=== PATIENT | male | born 1955 | race Caucasian/White ===

== ENCOUNTER 2025-03-11 11:24 | Outpatient (CLI) | payer MEDICARE, SELFPAY ==
--- NOTE | ~2025-03-11 | XR_ITS ---
Clinical Indication: Hypertension PA and lateral views of the chest: Comparison: None Findings: 6 mm right basilar pulmonary nodule versus nipple shadow present. Left lung clear. Cardiom ediastinal silhouette is within normal limits. Bones and soft tissues are unremarkable. Impression: 6 mm right basilar pulmonary nodule versus nipple shadow. Consider follow-up exam with nipple marker versus chest CT for further evaluation. Reviewed, dictated and finalized at location . Impression: 6 mm right basilar pulmonary nodule versus nipple shadow. Consider follow-up ex am with nipple marker versus chest CT for further evaluation.
--- OUTSIDE RECORDS SUMMARY | 2025-03-11 12:00 | XMS_ITS | Data Portability ---
Author Organization [facility] Barbi Key Address [address] [place] [address] Care Team Providers Care Recruitment Advertising Manager Name Role Phone RAVEN BAUER Primary Care Provider Assessment Encounter Date Assessment Date Assessment LastModified by Organization Details LastModified Time 02/08/2024 02/08/2024 Etiology of his fatigue is not clear but we will obtain blood work for right now we will keep him on the medicines that he is on his blood pressure is up a little bit but he says that is because he just does not feel good. 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 Will continue current therapy I like to see him back in about 2 months. [email or web address] Not available 02/24/2024 21:43:22 04/13/2024 04/13/2024 diagnosis and assessment and plan have been discussed all questions referable to that have been answered we will continue current therapy he will follow up with me in 3-4 months with blood work at that time [email or web address] Not available 04/13/2024 11:14:00 07/20/2024 07/20/2024 given the CKD 3 systolic of 142 we will add amlodipine 5 mg daily. Blood work has been ordered. His flu vaccine was recommended he has declined regular walking disease processes have been discussed he will follow up with me in 4 months [email or web address] Not available 07/20/2024 22:00:02 Plan of Treatment Reminders Order Date Submit Date Provider Last Modified By Organization Details Last Modified Time Details Appointments None recorded. Lab lipid panel, serum 2023 [facility], [address], [place], [address], 4 08:35:49 CMP, serum or plasma 2023 [facility], [address], [place], [address], 4 08:35:52 CBC w/ auto diff 2023 [facility], [address], [place], [address], 4 08:35:54 unlisted lab - T4, free 2023 [facility], [address], [place], [address], 4 08:35:50 T3, free, serum or plasma 2023 [facility], [address], [place], [address], 4 08:35:55 TSH, ultra-sensi tive, serum 2023 024 [facility], [address], [place], [address], 4 08:35:53 TSH, ultra-sensi tive, serum 2023 024 [facility], [address], [place], [address], 4 06:20:45 T3, free, serum or plasma [facility]23 [facility] [address], [place], [address], 4 06:20:46 T4, free, serum 2023 024 [facility] [address], [place], [address], 4 06:20:47 vitamin B12 + folate, serum or blood 2023 024 [facility] [address], [place], [address], 4 06:20:44 iron + TIBC + ferritin, serum 2023 024 [facility], [address], [place], [address], 4 06:20:47 CBC w/ auto diff 2023 024 [facility], [address], [place], [address], 4 06:20:45 Referral None recorded. Procedures None recorded. Surgeries None recorded. Imaging None recorded. Medication Orders amlodipine 5 mg tablet 2023 024 [email or web address] [id number], [address], [place], [place], [id number], 15:56:13 Patient TargetsNo targets recorded. Patient Instructions Encounter Date Encounter Id Patient Instructions Last Modified By Organization Details Last Modified Time 07/20/2024 [id number] A healthy lifestyle: care instructions Not available 07/20/2024 15:56:13 Reason for Referral None Reported. Results Created Date Observation Date Name Description Value Unit Range Abnormal Flag Note LastModifiedBy Organization Detail LastModifiedTime 02/08/20 24 02/09/2024 VITAM IN B12 AND FOLAT E vitamin B12 364 pg/mL 232-12 45 Not Available [facility] ([facility]) [address], [place], [address], 02/09/2024 06:20:44 02/08/20 24 02/09/2024 VITAM IN B12 AND FOLAT E folate (folic acid), serum 15.8 NG/mL >3.0 A serum folat e andre ntrat ion of less than 3.1 ng/mL is consi dered to repre sent clini bouchra defic iency . Not Available [facility] ([facility]) [address], [place], [address], 02/09/2024 06:20:44 02/08/20 24 02/09/2024 TSH TSH 8.940 uIU/m L 0.450- 4.500 above high normal Not Available [facility] ([facility]) [address], [place], [address], 02/09/2024 06:20:45 02/08/20 24 02/09/2024 CBC WITH DIFFE RENTI AL/PL ATELE T WBC 2.9 x10e3 /uL 3.4-10 .8 below low normal Not Available [facility] ([facility]) [address], [place], [address], 02/09/2024 06:20:45 02/08/20 24 02/09/2024 CBC WITH DIFFE RENTI AL/PL ATELE T RBC 2.40 x10e6 /uL 4.14-5 .80 alert low Ovalo cytes prese nt. Not Available [facility] ([facility]) [address] [place], [address], 02/09/2024 06:20:45 02/08/20 24 02/09/2024 CBC WITH DIFFE RENTI AL/PL ATELE T hemoglobin 8.5 g/dL 13.0-1 7.7 below low normal Sasha ified by martita capps jone sis Not Available [facility] ([facility]) [address], [place], [address], 02/09/2024 06:20:45 02/08/20 24 02/09/2024 CBC WITH DIFFE RENTI AL/PL ATELE T hematocrit 26.4 % 37.5-5 1.0 below low normal Not Available [facility] ([facility]) [address], [place], [address], 02/09/2024 06:20:45 02/08/20 24 02/09/2024 CBC WITH DIFFE RENTI AL/PL ATELE T MCV 110 fL 79-97 above high normal Not Available [facility] ([facility]) [address], [place], [address], 02/09/2024 06:20:45 02/08/20 24 02/09/2024 CBC WITH DIFFE RENTI AL/PL ATELE T MCH 35.4 pg 26.6-3 3.0 above high normal Not Available [facility] ([facility]) [address], [place], [address], 02/09/2024 06:20:45 02/08/20 24 02/09/2024 CBC WITH DIFFE RENTI AL/PL ATELE T MCHC 32.2 g/dL 31.5-3 5.7 Not Available [facility] ([facility]) [address], [place], [address], 02/09/2024 06:20:45 02/08/20 24 02/09/2024 CBC WITH DIFFE RENTI AL/PL ATELE T RDW 19.0 % 11.6-1 5.4 above high normal Not Available [facility] ([facility]) [address], [place], [address], 02/09/2024 06:20:45 02/08/20 24 02/09/2024 CBC WITH DIFFE RENTI AL/PL ATELE T platelets 70 x10e3 /uL 150-45 0 alert low Plate let count verif ied by adriana funk of perip heral blood smear . Not Available [facility] ([facility]) [address], [place], [address], 02/09/2024 06:20:45 02/08/20 24 02/09/2024 CBC WITH DIFFE RENTI AL/PL ATELE T neutrophils 78 % notest ab. Not Available [facility] ([facility]) [address], [place], [address], 02/09/2024 06:20:45 02/08/20 24 02/09/2024 CBC WITH DIFFE RENTI AL/PL ATELE T lymphs 15 % notest ab. Not Available [facility] ([facility]) [address], [place], [address], 02/09/2024 06:20:45 02/08/20 24 02/09/2024 CBC WITH DIFFE RENTI AL/PL ATELE T monocytes 2 % notest ab. Not Available [facility] ([facility]) [address] [place], [address], 02/09/2024 06:20:45 02/08/20 24 02/09/2024 CBC WITH DIFFE RENTI AL/PL ATELE T eos 4 % notest ab. Not Available [facility] ([facility]) [address] [place], [address], 02/09/2024 06:20:45 02/08/20 24 02/09/2024 CBC WITH DIFFE RENTI AL/PL ATELE T basos 1 % notest ab. Not Available [facility] ([facility]) [address], [place], [address], 02/09/2024 06:20:45 02/08/20 24 02/09/2024 CBC WITH DIFFE RENTI AL/PL ATELE T neutrophils (absolute) 2.3 x10e3 /uL 1.4-7. 0 Not Available [facility] ([facility]) [address], [place], [address], 02/09/2024 06:20:45 02/08/20 24 02/09/2024 CBC WITH DIFFE RENTI AL/PL ATELE T lymphs (absolute) 0.5 x10e3 /uL 0.7-3. 1 below low normal Not Available [facility] ([facility]) [address], [place], [address], 02/09/2024 06:20:45 02/08/20 24 02/09/2024 CBC WITH DIFFE RENTI AL/PL ATELE T monocytes(ab solute) 0.1 x10e3 /uL 0.1-0. 9 Not Available [facility] ([facility]) [address], [place], [address], 02/09/2024 06:20:45 02/08/20 24 02/09/2024 CBC WITH DIFFE RENTI AL/PL ATELE T eos (absolute) 0.1 x10e3 /uL 0.0-0. 4 Not Available [facility] ([facility]) [address], [place], [address], 02/09/2024 06:20:45 02/08/20 24 02/09/2024 CBC WITH DIFFE RENTI AL/PL ATELE T baso (absolute) 0.0 x10e3 /uL 0.0-0. 2 Not Available [facility] ([facility]) [address], [place], [address], 02/09/2024 06:20:45 02/08/20 24 02/09/2024 CBC WITH DIFFE RENTI AL/PL ATELE T immature granulocytes 0 % notest ab. Not Available [facility] ([facility]) [address], [place], [address], 02/09/2024 06:20:45 02/08/20 24 02/09/2024 CBC WITH DIFFE RENTI AL/PL ATELE T immature grans (abs) 0.0 x10e3 /uL 0.0-0. 1 Not Available [facility] ([facility]) [address] [place], [address], 02/09/2024 06:20:45 02/08/20 24 02/09/2024 CBC WITH DIFFE RENTI AL/PL ATELE T hematology comments: Note: Verif ied by micro julio [email or web address] natsal n. Not Available [facility] ([facility]) [address] [place], [address], 02/09/2024 06:20:45 02/08/20 24 02/09/2024 TRIIO DOTHY ANGELI E (T3), FREE triiodothyro nine (T3), free 1.8 pg/mL 2.0-4. 4 below low normal Not Available [facility] ([facility]) [address] [place], [address], 02/09/2024 06:20:46 02/08/20 24 02/09/2024 T4,FR EE(DI RECT) T4,free(dire ct) 1.02 NG/dL 0.82-1 .77 Not Available [facility] ([facility]) [address] [place], [address], 02/09/2024 06:20:47 02/08/20 24 02/09/2024 FE+TI BC+FE R iron bind.cap.(TI BC) 306 ug/dL 250-45 0 Not Available [facility] ([facility]) [address] [place], [address], 02/09/2024 06:20:47 02/08/20 24 02/09/2024 FE+TI BC+FE R UIBC 273 ug/dL 111-34 3 Not Available [facility] ([facility]) [address] [place], [address], 02/09/2024 06:20:47 02/08/20 24 02/09/2024 FE+TI BC+FE R iron 33 ug/dL 38-169 below low normal Not Available [facility] ([facility]) [address] [place], [address], 02/09/2024 06:20:47 02/08/20 24 02/09/2024 FE+TI BC+FE R iron saturation 11 % 15-55 below low normal Not Available [facility] ([facility]) [address] [place], [address], 02/09/2024 06:20:47 02/08/20 24 02/09/2024 FE+TI BC+FE R ferritin 849 NG/mL 30-400 above high normal Not Available [facility] ([facility]) [address] [place], [address], 02/09/2024 06:20:47 02/22/20 24 02/23/2024 IMMAT URE CELLS myelocytes 4 % 0-0 above high normal Not Available [facility] ([facility]) [address] [place], [address], 02/23/2024 06:37:37 02/22/20 24 02/23/2024 CBC WITH DIFFE RENTI AL/PL ATELE T WBC 5.6 x10e3 /uL 3.4-10 .8 Not Available [facility] ([facility]) [address] [place], [address], 02/23/2024 06:37:37 02/22/20 24 02/23/2024 CBC WITH DIFFE RENTI AL/PL ATELE T RBC 2.63 x10e6 /uL 4.14-5 .80 alert low Polyc hroma juan ramon prese nt Ovalo cytes prese nt. Not Available [facility] ([facility]) [address] [place], [address], 02/23/2024 06:37:37 02/22/20 24 02/23/2024 CBC WITH DIFFE RENTI AL/PL ATELE T hemoglobin 8.9 g/dL 13.0-1 7.7 below low normal Not Available [facility] ([facility]) [address], [place], [address], 02/23/2024 06:37:37 02/22/20 24 02/23/2024 CBC WITH DIFFE RENTI AL/PL ATELE T hematocrit 29.4 % 37.5-5 1.0 below low normal Not Available [facility] ([facility]) [address] [place], [address], 02/23/2024 06:37:37 02/22/20 24 02/23/2024 CBC WITH DIFFE RENTI AL/PL ATELE T MCV 112 fL 79-97 above high normal Not Available [facility] ([facility]) [address] [place], [address], 02/23/2024 06:37:37 02/22/20 24 02/23/2024 CBC WITH DIFFE RENTI AL/PL ATELE T MCH 33.8 pg 26.6-3 3.0 above high normal Not Available [facility] ([facility]) [address] [place], [address], 02/23/2024 06:37:37 02/22/20 24 02/23/2024 CBC WITH DIFFE RENTI AL/PL ATELE T MCHC 30.3 g/dL 31.5-3 5.7 below low normal Not Available [facility] ([facility]) [address] [place], [address], 02/23/2024 06:37:37 02/22/20 24 02/23/2024 CBC WITH DIFFE RENTI AL/PL ATELE T RDW 17.9 % 11.6-1 5.4 above high normal Not Available [facility] ([facility]) [address] [place], [address], 02/23/2024 06:37:37 02/22/20 24 02/23/2024 CBC WITH DIFFE RENTI AL/PL ATELE T platelets 627 x10e3 /uL 150-45 0 above high normal Not Available [facility] ([facility]) [address], [place], [address], 02/23/2024 06:37:37 02/22/20 24 02/23/2024 CBC WITH DIFFE RENTI AL/PL ATELE T neutrophils 34 % notest ab. Not Available [facility] ([facility]) [address], [place], [address], 02/23/2024 06:37:37 02/22/20 24 02/23/2024 CBC WITH DIFFE RENTI AL/PL ATELE T lymphs 32 % notest ab. Not Available [facility] ([facility]) [address], [place], [address], 02/23/2024 06:37:37 02/22/20 24 02/23/2024 CBC WITH DIFFE RENTI AL/PL ATELE T monocytes 22 % notest ab. Not Available [facility] ([facility]) [address], [place], [address], 02/23/2024 06:37:37 02/22/20 24 02/23/2024 CBC WITH DIFFE RENTI AL/PL ATELE T eos 5 % notest ab. Not Available [facility] ([facility]) [address], [place], [address], 02/23/2024 06:37:37 02/22/20 24 02/23/2024 CBC WITH DIFFE RENTI AL/PL ATELE T basos 3 % notest ab. Not Available [facility] ([facility]) [address], [place], [address], 02/23/2024 06:37:37 02/22/20 24 02/23/2024 CBC WITH DIFFE RENTI AL/PL ATELE T immature cells Note Not Available [facility] ([facility]) [address] [place], [address], 02/23/2024 06:37:37 02/22/20 24 02/23/2024 CBC WITH DIFFE RENTI AL/PL ATELE T neutrophils (absolute) 1.9 x10e3 /uL 1.4-7. 0 Not Available [facility] ([facility]) [address] [place], [address], 02/23/2024 06:37:37 02/22/20 24 02/23/2024 CBC WITH DIFFE RENTI AL/PL ATELE T lymphs (absolute) 1.8 x10e3 /uL 0.7-3. 1 Not Available [facility] ([facility]) [address] [place], [address], 02/23/2024 06:37:37 02/22/20 24 02/23/2024 CBC WITH DIFFE RENTI AL/PL ATELE T monocytes(ab solute) 1.2 x10e3 /uL 0.1-0. 9 above high normal Not Available [facility] ([facility]) [address] [place], [address], 02/23/2024 06:37:37 02/22/20 24 02/23/2024 CBC WITH DIFFE RENTI AL/PL ATELE T eos (absolute) 0.3 x10e3 /uL 0.0-0. 4 Not Available [facility] ([facility]) [address] [place], [address], 02/23/2024 06:37:37 02/22/20 24 02/23/2024 CBC WITH DIFFE RENTI AL/PL ATELE T baso (absolute) 0.2 x10e3 /uL 0.0-0. 2 Not Available [facility] ([facility]) [address] [place], [address], 02/23/2024 06:37:37 02/22/2002/23/2024 CBC WITH RENUKA CEE/PL ATELE T hematology comments: Note: Bre bermeo renuka cee was perfo rmed. Not Available [facility] ([facility]) [address], [place], [address], 02/23/2024 06:37:37 07/20/2007/21/2024 LIPID PANEL cholesterol, total 129 mg/dL 100-19 9 Not Available [facility] ([facility]) [address] [place], [address], 07/21/2024 08:35:49 07/20/2007/21/2024 LIPID PANEL triglyceride s 134 mg/dL 0-149 Not Available [facility] ([facility]) [address] [place], [address], 07/21/2024 08:35:49 07/20/2007/21/2024 LIPID PANEL HDL cholesterol 65 mg/dL >39 Not Available [facility] ([facility]) [address] [place], [address], 07/21/2024 08:35:49 07/20/20 24 07/21/2024 LIPID PANEL VLDL cholesterol bouchra 23 mg/dL 5-40 Not Available [facility] ([facility]) [address] [place], [address], 07/21/2024 08:35:49 07/20/20 24 07/21/2024 LIPID PANEL LDL chol calc ([facility]) 41 mg/dL 0-99 Not Available [facility] ([facility]) [address] [place], [address], 07/21/2024 08:35:49 07/20/20 24 07/21/2024 T4, FREE T4,free(dire ct) 1.23 NG/dL 0.82-1 .77 Not Available [facility] ([facility]) [address] [place], [address], 07/21/2024 08:35:50 07/20/20 24 07/21/2024 COMP. METAB OLIC PANEL (14) glucose 83 mg/dL 70-99 Not Available [facility] ([facility]) [address] [place], [address], 07/21/2024 08:35:51 07/20/20 24 07/21/2024 COMP. METAB OLIC PANEL (14) BUN 26 mg/dL 8-27 Not Available [facility] ([facility]) [address] [place], [address], 07/21/2024 08:35:51 07/20/20 24 07/21/2024 COMP. METAB OLIC PANEL (14) creatinine 1.99 mg/dL 0.76-1 .27 above high normal Not Available [facility] ([facility]) [address] [place], [address], 07/21/2024 08:35:51 07/20/20 24 07/21/2024 COMP. METAB OLIC PANEL (14) eGFR 36 mL/mi n/1.7 3 >59 below low normal Not Available [facility] ([facility]) [address] [place], [address], 07/21/2024 08:35:51 07/20/20 24 07/21/2024 COMP. METAB OLIC PANEL (14) BUN/creatini ne ratio 13 10-24 Not Available [facility] ([facility]) [address] [place], [address], 07/21/2024 08:35:51 07/20/20 24 07/21/2024 COMP. METAB OLIC PANEL (14) sodium 137 mmol/ L 134-14 4 Not Available [facility] ([facility]) [address] [place], [address], 07/21/2024 08:35:51 07/20/20 24 07/21/2024 COMP. METAB OLIC PANEL (14) potassium 5.3 mmol/ L 3.5-5. 2 above high normal Not Available [facility] ([facility]) [address], [place], [address], 07/21/2024 08:35:51 07/20/20 24 07/21/2024 COMP. METAB OLIC PANEL (14) chloride 99 mmol/ L 96-106 Not Available [facility] ([facility]) [address], [place], [address], 07/21/2024 08:35:51 07/20/2007/21/2024 COMP. METAB OLIC PANEL (14) carbon dioxide, total 22 mmol/ L 20-29 Not Available [facility] ([facility]) [address], [place], [address], 07/21/2024 08:35:51 07/20/20 24 07/21/2024 COMP. METAB OLIC PANEL (14) calcium 9.3 mg/dL 8.6-10 .2 Not Available [facility] ([facility]) [address], [place], [address], 07/21/2024 08:35:51 07/20/20 24 07/21/2024 COMP. METAB OLIC PANEL (14) protein, total 6.7 g/dL 6.0-8. 5 Not Available [facility] ([facility]) [address] [place], [address], 07/21/2024 08:35:51 07/20/20 24 07/21/2024 COMP. METAB OLIC PANEL (14) albumin 4.3 g/dL 3.9-4. 9 Not Available [facility] ([facility]) [address] [place], [address], 07/21/2024 08:35:51 07/20/2007/21/2024 COMP. METAB OLIC PANEL (14) globulin, total 2.4 g/dL 1.5-4. 5 Not Available [facility] ([facility]) [address], [place], [address], 07/21/2024 08:35:51 07/20/20 24 07/21/2024 COMP. METAB OLIC PANEL (14) bilirubin, total 1.0 mg/dL 0.0-1. 2 Not Available [facility] ([facility]) [address], [place], [address], 07/21/2024 08:35:51 07/20/20 24 07/21/2024 COMP. METAB OLIC PANEL (14) alkaline phosphatase 101 IU/L 44-121 Not Available [facility] ([facility]) [address], [place], [address], 07/21/2024 08:35:51 07/20/20 24 07/21/2024 COMP. METAB OLIC PANEL (14) AST (SGOT) 41 IU/L 0-40 above high normal Not Available [facility] ([facility]) [address], [place], [address], 07/21/2024 08:35:51 07/20/20 24 07/21/2024 COMP. METAB OLIC PANEL (14) ALT (SGPT) 24 IU/L 0-44 Not Available [facility] ([facility]) [address], [place], [address], 07/21/2024 08:35:51 07/20/20 24 07/21/2024 TSH TSH 5.130 uIU/m L 0.450- 4.500 above high normal Not Available [facility] ([facility]) [address], [place], [address], 07/21/2024 08:35:53 07/20/20 24 07/21/2024 CBC WITH DIFFE RENTI AL/PL ATELE T WBC 6.8 x10e3 /uL 3.4-10 .8 Not Available [facility] ([facility]) [address], [place], [address], 07/21/2024 08:35:54 07/20/20 24 07/21/2024 CBC WITH DIFFE RENTI AL/PL ATELE T RBC 3.60 x10e6 /uL 4.14-5 .80 below low normal Not Available [facility] ([facility]) [address], [place], [address], 07/21/2024 08:35:54 07/20/2007/21/2024 CBC WITH DIFFE RENTI AL/PL ATELE T hemoglobin 12.6 g/dL 13.0-1 7.7 below low normal Not Available [facility] ([facility]) [address] [place], [address], 07/21/2024 08:35:54 07/20/2007/21/2024 CBC WITH DIFFE RENTI AL/PL ATELE T hematocrit 40.1 % 37.5-5 1.0 Not Available [facility] ([facility]) [address] [place], [address], 07/21/2024 08:35:54 07/20/2007/21/2024 CBC WITH DIFFE RENTI AL/PL ATELE T MCV 111 fL 79-97 above high normal Not Available [facility] ([facility]) [address] [place], [address], 07/21/2024 08:35:54 07/20/2007/21/2024 CBC WITH DIFFE RENTI AL/PL ATELE T MCH 35.0 pg 26.6-3 3.0 above high normal Not Available [facility] ([facility]) [address] [place], [address], 07/21/2024 08:35:54 07/20/2007/21/2024 CBC WITH DIFFE RENTI AL/PL ATELE T MCHC 31.4 g/dL 31.5-3 5.7 below low normal Not Available [facility] ([facility]) [address], [place], [address], 07/21/2024 08:35:54 07/20/20 24 07/21/2024 CBC WITH DIFFE RENTI AL/PL ATELE T RDW 14.1 % 11.6-1 5.4 Not Available [facility] ([facility]) [address], [place], [address], 07/21/2024 08:35:54 07/20/2007/21/2024 CBC WITH DIFFE RENTI AL/PL ATELE T platelets 158 x10e3 /uL 150-45 0 Not Available [facility] ([facility]) [address], [place], [address], 07/21/2024 08:35:54 07/20/2007/21/2024 CBC WITH DIFFE RENTI AL/PL ATELE T neutrophils 69 % notest ab. Not Available [facility] ([facility]) [address], [place], [address], 07/21/2024 08:35:54 07/20/20 24 07/21/2024 CBC WITH DIFFE RENTI AL/PL ATELE T lymphs 18 % notest ab. Not Available [facility] ([facility]) [address], [place], [address], 07/21/2024 08:35:54 07/20/20 24 07/21/2024 CBC WITH DIFFE RENTI AL/PL ATELE T monocytes 10 % notest ab. Not Available [facility] ([facility]) [address], [place], [address], 07/21/2024 08:35:54 07/20/20 24 07/21/2024 CBC WITH DIFFE RENTI AL/PL ATELE T eos 2 % notest ab. Not Available [facility] ([facility]) [address], [place], [address], 07/21/2024 08:35:54 07/20/2007/21/2024 CBC WITH DIFFE RENTI AL/PL ATELE T basos 1 % notest ab. Not Available [facility] ([facility]) [address], [place], [address], 07/21/2024 08:35:54 07/20/2007/21/2024 CBC WITH DIFFE RENTI AL/PL ATELE T neutrophils (absolute) 4.7 x10e3 /uL 1.4-7. 0 Not Available [facility] ([facility]) [address], [place], [address], 07/21/2024 08:35:54 07/20/20 24 07/21/2024 CBC WITH DIFFE RENTI AL/PL ATELE T lymphs (absolute) 1.2 x10e3 /uL 0.7-3. 1 Not Available [facility] ([facility]) [address], [place], [address], 07/21/2024 08:35:54 07/20/20 24 07/21/2024 CBC WITH DIFFE RENTI AL/PL ATELE T monocytes(ab solute) 0.7 x10e3 /uL 0.1-0. 9 Not Available [facility] ([facility]) [address], [place], [address], 07/21/2024 08:35:54 07/20/20 24 07/21/2024 CBC WITH DIFFE RENTI AL/PL ATELE T eos (absolute) 0.1 x10e3 /uL 0.0-0. 4 Not Available [facility] ([facility]) [address], [place], [address], 07/21/2024 08:35:54 07/20/20 24 07/21/2024 CBC WITH DIFFE RENTI AL/PL ATELE T baso (absolute) 0.1 x10e3 /uL 0.0-0. 2 Not Available [facility] ([facility]) [address], [place], [address], 07/21/2024 08:35:54 07/20/20 24 07/21/2024 CBC WITH DIFFE RENTI AL/PL ATELE T immature granulocytes 0 % notest ab. Not Available [facility] ([facility]) [address], [place], [address], 07/21/2024 08:35:54 07/20/20 24 07/21/2024 CBC WITH DIFFE RENTI AL/PL ATELE T immature grans (abs) 0.0 x10e3 /uL 0.0-0. 1 Not Available [facility] ([facility]) [address], [place], [address], 07/21/2024 08:35:54 07/20/20 24 07/21/2024 TRIIO DOTHY ANGELI E (T3), FREE triiodothyro nine (T3), free 1.8 pg/mL 2.0-4. 4 below low normal Not Available [facility] ([facility]) [address], [place], [address], 07/21/2024 08:35:55 02/13/20 24 02/13/2024 US, abdom en No observ ation record ed. [email or web address] [facility] [address] [place], [address], 02/23/2024 15:32:45 10/09/20 24 12/11/2021 colon oscop y scree noreen (PROC ) No observ ation record ed. BARCODE Not Available 2023 18:02:43 Result Notes None recorded. Problems Name Problem SNOMED Code Status Onset Date Resolution Date Notes Provider Name and Address Organization Details Recorded Time Fatigue 24242362 Active 2023 Iris Singer MA null, [place] - [facility] 4 09:42:06 Pancytopenia 251091094 Active 2023 Raven Bauer MD Attn: Fernanda ace,[address] [place], [address], [place] [facility] 4 21:43:06 Seronegative rheumatoid arthritis 639230533 Active 2023 Raven Bauer MD Attn: Fernanda db,[address] [place], [address], [place] [facility] 4 21:43:08 Chronic kidney disease stage 3 838493243 Active 2023 Raven Bauer MD Attn: Fernanda db,[address] [place], [address], [place] [facility] 4 21:43:13 Gout 33447707 Active 2023 Raven Bauer MD Attn: Fernanda ace,[address] [place], [address], [place] [facility] 4 21:43:14 Hypothyroidism 78970772 Active 2023 Raven Bauer MD Attn: Fernanda db,[address] [place], [address], [place] [facility] 4 21:43:15 Hyperlipidemia 70889788 Active 2023 Raven Bauer MD Attn: Fernanda ace,[address] [place], [address], [place] [facility] 4 21:43:19 Rheumatoid arthritis 92289964 Active 2023 Raven Bauer MD Attn: Fernanda ace,[address] [place], [address], [place] [facility] 4 21:22:47 Atrial fibrillation 89674934 Active 2023 Raven Bauer MD Attn: Fernanda ace,[address] [place], [address], [place] [facility] 4 21:22:47 Essential hypertension 20269998 Active 2023 Raven Bauer MD Attn: Fernanda ace,[address] [facility], [place], [address], [facility] - [facility] 4 21:22:52 Problem Notes None recorded. Medical Equipment None Reported. Allergies Allergen ID Allergen Name Allergen Category Reaction Reaction Severity Criticality Documentation Date Start Date Code Code System Note Provider Name and Address Organization Details Recorded Time 17050517 cephaelin e Not available Not available Not available Not available 02/08/2024 63293 UNK Preston Zamarripa MA null, [facility] 4 10:37:41 390269 cephalexi n medicatio n Not available Not available Not available 02/08/2024 2231 RxNorm Preston Zamarripa MA null, [facility] 4 10:37:38 Medications Name Sig Start Date Stop Date Status Note LastModified by Organization Details LastModified Time atorvastati n 40 mg tablet TAKE 1 TABLET BY MOUTH EVERY NIGHT active Not Available Not Available No t Available amiodarone 200 mg tablet TAKE 1 TABLET BY MOUTH EVERY DAY active Not Available Not Available No t Available lisinopril 20 mg tablet active Not Available Not Available Not Available prednisone 5 mg tablet 02/07 completed Not Available Not Available Not Available clindamycin HCl 150 mg capsule TAKE 1 CAPSULE BY MOUTH FOUR TIMES DAILY UNTIL ALL TAKEN 02/07 completed Not Available Not Available Not Available acetaminoph en 300 mg-codeine 30 mg tablet TAKE 1 TABLET BY MOUTH EVERY 4 HOURS NEEDED FOR PAIN 02/07 completed Not Available Not Available Not Available amlodipine 5 mg tablet TAKE 1 TABLET BY MOUTH EVERY DAY active Not Available Not Available No t Available tramadol 50 mg tablet TAKE 1 TABLET BY MOUTH THREE TIMES DAILY NEEDED FOR PAIN active Not Available Not Available No t Available levothyroxi ne 25 mcg tablet TAKE 1 TABLET BY MOUTH EVERY DAY active Not Available Not Available No t Available methotrexat e sodium 2.5 mg tablet TAKE 5 TABLETS IN THE MORNING AND 5 TABLETS IN THE EVENING BY MOUTH ONCE WEEKLY 04/13 completed Not Available Not Available Not Available lisinopril 10 mg tablet TAKE 1 TABLET BY MOUTH EVERY DAY 07/20 completed Not Available Not Available Not Available metoprolol tartrate 50 mg tablet TAKE 1 TABLET BY MOUTH TWICE DAILY active Not Available Not Available No t Available folic acid 1 mg tablet active Not Available Not Available Not Available lisinopril 5 mg tablet TAKE 1 TABLET BY MOUTH DAILY 07/20 completed Not Available Not Available Not Available furosemide 20 mg tablet TAKE 1 TABLET BY MOUTH ON EVEN DAYS, ALTERNATI NG WITH 2 TABLETS ON ODD DAYS active Not Available Not Available No t Available methylpredn isolone 4 mg tablets in a dose pack TAKE DIRECTED 02/07 completed Not Available Not Available Not Available calcitriol 0.25 mcg capsule active Not Available Not Available Not Available amoxicillin 875 mg-potassiu m clavulanate 125 mg tablet TAKE 1 TABLET BY MOUTH ONCE DAILY X 3 DAYS 02/07 completed Not Available Not Available Not Available ezetimibe 10 mg tablet TAKE 1 TABLET BY MOUTH EVERY DAY active Not Available Not Available No t Available oseltamivir 30 mg capsule 02/07 completed Not Available Not Available Not Available Eliquis 5 mg tablet TAKE 1 TABLET BY MOUTH TWICE DAILY active Not Available Not Available No t Available Vitals Date Recorded Body weight Body mass index (BMI) Body height Oxygen saturation Oxygen saturation in Arterial blood by Pulse oximetry Heart rate Systolic blood pressure Diastolic blood pressure Provider Name and Address Organization Details Last Updated DateTime 4 09362.7 8 g 24.3 kg/m2 172.72 cm 98 % 98 % 47 /min 152 mm[Hg] 84 mm[Hg] Preston Zamarripa MA [facility] 4 10:33:27 Date Recorded Body height Body mass index (BMI) Body weight Heart rate Oxygen saturation Oxygen saturation in Arterial blood by Pulse oximetry Systolic blood pressure Diastolic blood pressure Provider Name and Address Organization Details Last Updated DateTime 4 172.72 cm 25.1 kg/m2 56684.7 4 g 59 /min 99 % 99 % 150 mm[Hg] 82 mm[Hg] Sherly Mccain MA [place] - [facility] 4 10:52:34 Date Recorded Body height Body mass index (BMI) Body weight Heart rate Oxygen saturation Oxygen saturation in Arterial blood by Pulse oximetry Systolic blood pressure Diastolic blood pressure Provider Name and Address Organization Details Last Updated DateTime 4 172.72 cm 25.4 kg/m2 62514.9 3 g 47 /min 99 % 99 % 134 mm[Hg] 72 mm[Hg] Preston Zamarripa MA [facility] 4 10:21:32 Date Recorded Body height Body mass index (BMI) Body weight Heart rate Oxygen saturation Oxygen saturation in Arterial blood by Pulse oximetry Systolic blood pressure Diastolic blood pressure Provider Name and Address Organization Details Last Updated DateTime 172.72 cm 24.3 kg/m2 37331.7 8 g 52 /min 98 % 98 % 142 mm[Hg] 70 mm[Hg] Tor Flores MA [facility] 4 10:24:54 Social History Question Answer Notes LastModified by Organizat ion Details LastModified Time Tobacco Smoking Status Never Smoker Preston Zamarripa MA [facility], [facility] 02/08/2024 10:39:10 Do You Have An Advance Directive? No Information not available 02/08/2024 Are You Blind Or Do You Have Difficulty Seeing? No Information not available 02/08/2024 Are You Deaf Or Do You Have Serious Difficulty Hearing? No Information not available 02/08/2024 What Type Of Diet Are You Following? REGULAR Information not available 02/08/2024 What Was The Date Of Your Most Recent Tobacco Screening? 04/13/2024 Information not available 04/13/2024 What Is Your Relationship Status? Information not available 02/08/2024 Do You Use Your Seat Belt Or Car Seat Routinely? Yes Information not available 02/08/2024 Do You Have Smoke And Carbon Monoxide Detectors In Your Home? Yes Information not available 02/08/2024 Do You Use Sunscreen Routinely? No Information not available 02/08/2024 Sex: Male Functional Status Question Answer Note LastModified by Organizat ion Details LastModified Time Do you or have you ever used any other forms of tobacco or nicotine? No [email or web address] Information not available 07/20/2024 What is your level of alcohol consumption? Occasional Information not available 02/08/2024 Are you able to care for yourself? Yes Information not available 02/08/2024 What is your exercise level? None Information not available 02/08/2024 Mental Status Question Answer Note LastModified by Organization D etails LastModified Time Do you feel stressed (tense, restless, nervous, or anxious, or unable to sleep at night)? [id number] Information not available 02/08/2024 Family History Nothing Reported. Medical History Condition Response Coronary Artery Disease N Other N High Blood Pressure Y Atrial Fibrillation N Kidney or Bladder Problems Y Thyroid Problems Y GI Problems N Depression N COPD N Blood Clots N Have you had a mammogram in the last yea r? N Skin Problems N Anemia N Heart Attack ([place]) Y Anxiety Disorder N Diabetes N Muscle, Joint, or Bone Problems N Seizures/Epilepsy N Have you had a colonoscopy in the last 1 0 years? N Acid Reflux (GERD) N Cancer N Stroke N Asthma N Allergies Y Have you had a PSA blood test in the las t year? N High Cholesterol Y Hepatitis N Liver Disease N Headaches N Heart Failure N Osteoporosis N Past Encounters Encounter ID Performer Location Encounter Start Date Encounter Closed Date Diagnosis/Indication Diagnosis SNOMED-CT Code Diagnosis ICD10 Code Diagnosis Note [id number] Raven Bauer MD [facility] (Adult Med) [address] [place] [address] 02/08/2024 10:08:32 02/08/2024 10:50:12 Fatigue 51760709 R53.83 Rheumatoid arthritis 698 26663 M06.9 Atrial fibrillation 4943 6004 I48.91 Hyperlipidemia 59943919 E78.5 Essential hypertension 07939762 I10 [id number] Raven Bauer MD [facility] ([facility]ult [facility]) [address] [place] [address] 02/22/2024 10:31:32 02/22/2024 11:13:53 Pancytopenia 078951967 D61.818 Seronegati ve rheumatoid arthritis 761861193 M06.00 Chronic ki dney disease stage 3 364602116 N18.30 Gout 89447443 M10.9 Hypothyroidism 49499427 E03.9 Hyperlipidemia 54304630 E78.5 [id number] Raven Bauer MD [facility] ([facility]ult [facility]) [address] [place] [address] 04/13/2024 09:58:45 04/13/2024 10:52:46 Essential hypertension 65322759 I10 Chronic ki dney disease stage 3 051716185 N18.30 Atrial fibrillation 4943 6004 I48.91 Hyperlipidemia 24822667 E78.5 Hypothyroidism 74029616 E03.9 [id number] Raven Bauer MD [facility] ([facility] [place] [address] 07/20/2024 10:09:08 07/20/2024 10:47:58 Essential hypertension 79465602 I10 Hyperlipidemia 12962788 E78.5 Gout 19748340 M10.9 Body mass index 20-24 - normal 261804785 Z68.24 Hypothyroidism 53916129 E03.9 Seronegati ve rheumatoid arthritis 661358323 M06.00 Chronic ki dney disease stage 3 096470457 N18.30 Atrial fibrillation 4943 6004 I48.91 Health Concerns Section Related Observation LastModified by Organization Detai ls LastModified Time None Recorded Concern Status LastModified by Organization Details LastModified Time None Recorded Advance Directives Directive N: Payers Encounter Date Sequence Insurance Name Policy Number Policy Nunez Covered Member ID Nunez Member ID Guarantor Name 02/22/2024 1 [facility] (MEDICARE REPLACEMENT/A DVANTAGE - HMO) [id number] Pan Joshua [id number] Pan Joshua 04/13/2024 1 [facility] (MEDICARE REPLACEMENT/A DVANTAGE - HMO) [id number] Pan Joshua [id number] Pan Joshua 07/20/2024 1 [facility] (MEDICARE REPLACEMENT/A DVANTAGE - HMO) [id number] Pan Joshua [id number] Pan Joshua Notes Date Note Type Note Provider Name and Address Organization Details Recorded Time 02/08/2024 text/html 68-year-old with A-fib hyperlipidemia CKD 3 rheumatoid arthritis and chronic anemia who comes in to follow-up for his medical problems overall he has been doing poorly tired no melena no hematochezia no fever chills night sweats weight loss basis is extremely fatigued Raven Bauer MD Attn: [address] [place], [address], [place] [facility] 02/25/2024 21:24:18 02/22/2024 text/html Follow-up of his blood work he is doing much better he did have pancytopenia blood work now shows he is anemic his white blood cell count is gone from 2.9-5.6 platelets from 70,000 to about 600,000 he had an elevated TSH we started him on some low-dose Synthroid he says he feels 100% better Raven Bauer MD Attn: Accounting, [address] [facility], [place], [address], [facility] - [facility] 02/24/2024 21:43:44 04/13/2024 text/html Follow-up of his blood work he is doing much better he did have pancytopenia blood work now shows he is anemic his white blood cell count is gone from 2.9-5.6 platelets from 70,000 to about 600,000 he had an elevated TSH we started him on some low-dose Synthroid he says he feels 100% better. He continues to feel great with no complaints Raven Bauer MD Attn: Accounting, [address] [facility], [place], [address], [facility] - [facility] 04/13/2024 11:14:19 07/20/2024 text/html hypertension no chest pain shortness breath palpitations. Hyperlipidemia his diet is better he is not having side effects from his atorvastatin. Gout no red hot swollen joints. Seronegative rheumatoid arthritis he is off the methotrexate symptoms appear to be controlled. Hypothyroid no heat or cold intolerance CKD 3 no new symptoms associated with this disease process Raven Bauer MD Attn: [address]ing, [address] [place], [address], [facility] 07/20/2024 22:00:39
--- OUTSIDE RECORDS SUMMARY | 2025-03-11 12:01 | XMS_ITS | CONTINUITY OF CARE DOCUMENT ---
Author Name jaky starkey Address Unknown Organization [facility] Address [address] [place] [address] Phone [phone] Care Team Providers Care Gynecologist Name Role Phone Lyndsay CHILD, Gregorio Unavailable [phone] RAVEN VALADEZ MD Unavailable [phone] RAVEN VALADEZ MD Unavailable [phone] PROBLEMS Condition Status Date Provider Notes Atrial fib paroxysmal active Gregorio Umana MD CHF, systolic, chronic active Gregorio hassan MD HTN essential active Gregorio Umana MD Cardiomyopathy, EF 60% TTE , EF 55% by echo 06/2021, EF 30% in 2018 active Gregorio Umana MD Bradycardia sinus active Gregorio Umana MD Abnormal EKG active Gregorio Umana MD CKD stage 3 GFR 30-59 active Gregorio Umana MD Hypercholesterolemia active Gregorio Umana MD Hyperkalemia active Gregorio Umana MD Gout active Gregorio Umana MD Renal artery stenosis active Gregorio Umana MD Carotid bruit, <50% B/L ICA stenosis 05/2023 active Gregorio Umana MD Leg edema, bilateral active Gregorio Umana MD 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 active Gregorio Umana MD Weakness of left hand active Gregorio Umana MD Aortic regurgitation, mild completed 05/16 - Gregorio Umana MD Mitral regurgitation, mild-moderate active Gregorio Umana MD ENCOUNTERS Date Type Provider Location Encounter Diag angela - In-person encounter Office Visit Gregorio Umana MD [facility] - In-person encounter Office Visit Gregorio Umana MD [facility] - In-person encounter Office Visit Gregorio Umana MD [facility] Mitral regurgitation, mild-moderate - In-person encounter Office Visit Gregorio Umana MD [facility] Carotid bruit, <50% B/L ICA stenosis ortic regurgitation, mild - In-person encounter Office Visit Gregorio Umana MD [facility] Cardiomyopathy, EF 60% TTE 06/2022, EF 55% by echo 06/2021, EF 30% in 2018Weakness of left hand - In-person encounter Office Visit Gregorio Umana MD [facility] Cardiomyopathy, EF 60% TTE 06/2022, EF 55% by echo 06/2021, EF 30% in 2018 - In-person encounter Office Visit Gregorio Umana MD [facility] Cardiomyopathy, EF 60% TTE 06/2022, EF 55% by echo 06/2021, EF 30% in 2018 - In-person encounter Office Visit Gregorio Umana MD [facility] 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 - In-person encounter Office Visit Gregorio Umana MD [facility] Leg edema, bilateral - In-person encounter Office Visit Gregorio Umana MD [facility] Renal artery stenosisCarotid bruit, <50% B/L ICA stenosis 05/2023 - In-person encounter Office Visit Gregorio Umana MD [facility] Cardiomyopathy, EF 60% TTE 06/2022, EF 55% by echo 06/2021, EF 30% in 2018 - In-person encounter Office Visit Gregorio Umana MD [facility] - In-person encounter Office Visit Gregorio Umana MD [facility] Cardiomyopathy, EF 60% TTE 06/2022, EF 55% by echo 06/2021, EF 30% in 2018HyperkalemiaGout - In-person encounter Office Visit Gregorio Umana MD [facility] Cardiomyopathy, EF 60% TTE 06/2022, EF 55% by echo 06/2021, EF 30% in 2018Hypercholesterolemi a - In-person encounter Office Visit Gregorio Umana MD [facility] Atrial fib paroxysmalCHF, systolic, chronicHTN essentialCardiomyopathy , EF 60% TTE 06/2022, EF 55% by echo 06/2021, EF 30% in 2017Bradycardia sinusAbnormal EKGCKD stage 3 GFR 30-59 VITAL SIGNS Date Observation Value Provider Body Mass Index (Ratio) 24.93 kg/m2 Harjinder Umana MD blood pressure, diastolic 86 mm[Hg] Horacio ylsonya Rust blood pressure, systolic 139 mm[Hg] [facility], [facility] 98 % [facility] pulse rate 48 /min Key Rust weight E&M 164 [lb_av] Key Rust height E&M 68 [in_i] Key Rust Body Mass Index (Ratio) 25.27 kg/m2 Harjinder Umana MD pulse rate 57 /min Paulettesonya Martinez blood pressure, cuff size regular Santos Martinez blood pressure, diastolic 88 mm[Hg] Ta bitortega Martinez blood pressure, systolic 138 mm[Hg] Tab itha [place] oxygen saturation, oximetry 99 % Paulette [place] respiratory rate E&M 12 /min Paulette Martinez weight E&M 166.2 [lb_av] Paulette Martinez height E&M 68 [in_i] Paulette [place] Body Mass Index (Ratio) 25.24 kg/m2 Harjinder Umana MD weight E&M 166 [lb_av] Gregorio Umana MD blood pressure, cuff size regular [facility] blood pressure, diastolic 86 mm[Hg] Fa [facility] blood pressure, systolic 133 mm[Hg] [facility] /min [facility] oxygen saturation, oximetry 100 % [facility] respiratory rate E&M 15 /min Mervat merino height E&M 68 [in_i] [facility] Body Mass Index (Ratio) 25.39 kg/m2 Harjinder Umana MD blood pressure, cuff size regular Ja rr blood pressure, diastolic 98 mm[Hg] Ja rret blood pressure, systolic 159 mm[Hg] Saira ret pulse rate 53 /min Jorge oxygen saturation, oximetry 100 % Jorge respiratory rate E&M 12 /min Jorge weight E&M 167 [lb_av] Jorge y height E&M 68 [in_i] Jorge y Body Mass Index (Ratio) 25.24 kg/m2 Harjinder Umana MD blood pressure, cuff size regular Ke rri Gruenenfed blood pressure, diastolic 82 mm[Hg] Ke rri Gruenenfeldcecilia blood pressure, systolic 154 mm[Hg] Shellie Bedolla oxygen saturation, oximetry 100 % Shirley Bedolla respiratory rate E&M 12 /min Shirley figueroaed pulse rate 60 /min Shirley Rojas lder weight E&M 166 [lb_av] Shirley Rojas lder height E&M 68 [in_i] Shirley Rojas taraser Body Mass Index (Ratio) 25.06 kg/m2 Harjinder Umana MD height E&M 68 [in_i] Chelo Marvin blood pressure, cuff size regular fredrick Marvin blood pressure, diastolic 91 mm[Hg] fredrick Marvin blood pressure, systolic 168 mm[Hg] She cyndi Marvin oxygen saturation, oximetry 96 % Chelo Marvin respiratory rate E&M 18 /min Chelo Marvin pulse rate 60 /min Chelo Marvin weight E&M 164.8 [lb_av] Chelo Marvin Body Mass Index (Ratio) 23.41 kg/m2 Harjinder Umana MD blood pressure, cuff size large Fl afua [place] blood pressure, diastolic 82 mm[Hg] Fl afua [place] blood pressure, systolic 108 mm[Hg] [facility] helraven [place] oxygen saturation, oximetry 99 % Fatemeh [place] respiratory rate E&M 16 /min Sharri [place] pulse rate 63 /min Fatemeh nelson weight E&M 154 [lb_av] Fatemeh nelson height E&M 68 [in_i] Fatemeh nelson Body Mass Index (Ratio) 24.33 kg/m2 Harjinder Umana MD blood pressure, diastolic 90 mm[Hg] Sa ra Fallon blood pressure, systolic 130 mm[Hg] Odalis a Fallon oxygen saturation, oximetry 96 % Nicole Fallon respiratory rate E&M 17 /min Nicole Si ms blood pressure, cuff size regular Sa ra Fallon pulse rate 66 /min Nicole Fallon weight E&M 160 [lb_av] Nicole Fallon height E&M 68 [in_i] Nicole Fallon Body Mass Index (Ratio) 26.15 kg/m2 Harjinder Umana MD blood pressure, cuff size regular Cy ntbrittanie Yin blood pressure, diastolic 70 mm[Hg] Cy ntbrittanie Yin blood pressure, systolic 120 mm[Hg] Melissa chino Yin oxygen saturation, oximetry 97 % Leyla Yin respiratory rate E&M 16 /min Leyla Yin pulse rate 60 /min Leyla Campbel l weight E&M 172 [lb_av] Leyla Campbel l height E&M 68 [in_i] Leyla Campbel l Body Mass Index (Ratio) 26.15 kg/m2 Harjinder Umana MD blood pressure, cuff size large Ke rri Daneuenenfed blood pressure, diastolic 70 mm[Hg] Ke rri Gruenenfelder blood pressure, systolic 120 mm[Hg] Shellie Bedolla oxygen saturation, oximetry 98 % Shirley Bedolla respiratory rate E&M 16 /min Shirley beck pulse rate 61 /min Shirley Crystal lder weight E&M 172 [lb_av] Shirley Crystal lder height E&M 68 [in_i] Shirley Daneuenenfe [facility] Body Mass Index (Ratio) 25.54 kg/m2 Harjinder Umana MD blood pressure, cuff size large Ke rri [facility] blood pressure, diastolic 110 mm[Hg] Ke rri [facility]abaylor [facility] blood pressure, systolic 210 mm[Hg] Shellie ri [facility]ab[facility] oxygen saturation, oximetry 99 % Shirley [facility] respiratory rate E&M 18 /min Shirley figueroabaylor [facility] pulse rate 58 /min Shirley Rojas [facility] weight E&M 168 [lb_av] Shirley Rojas [facility] height E&M 68 [in_i] Shirley Rojas [facility] Body Mass Index (Ratio) 25.69 kg/m2 Harjinder Umana MD pulse rate 53 /min Lavern [facility] oxygen saturation, oximetry 98 % Lavern Block blood pressure, diastolic 80 mm[Hg] Br ittany Block blood pressure, systolic 122 mm[Hg] Minerva ttany Block weight E&M 169 [lb_av] Lavern Block blood pressure, resting Yes [facility] rate E&M 16 /min Brittan Block height E&M 68 [in_i] Lavern Block Body Mass Index (Ratio) 26.76 kg/m2 Harjinder Umana MD blood pressure, cuff size regular Cy janie Yin blood pressure, diastolic 64 mm[Hg] Cy janie Yin blood pressure, systolic 120 mm[Hg] Melissa Yin oxygen saturation, oximetry 98 % Leyla Yin respiratory rate E&M 16 /min Leyla Yin pulse rate 68 /min Leyla bermeo weight E&M 176 [lb_av] Leyla bermeo height E&M 68 [in_i] Leyla bermeo Body Mass Index (Ratio) 26.45 kg/m2 Harjinder Umana MD weight E&M 174 [lb_av] Leyla bermeo blood pressure, cuff size small Cy janie Yin blood pressure, diastolic 70 mm[Hg] Cy janie Yin blood pressure, systolic 114 mm[Hg] Melissa Yin oxygen saturation, oximetry 98 % Leyla Yin respiratory rate E&M 16 /min Leyla Yin pulse rate 60 /min Leyla bermeo height E&M 68 [in_i] Leyla bermeo Body Mass Index (Ratio) 26.45 kg/m2 Harjinder Umana MD blood pressure, diastolic 80 mm[Hg] Da leila Marielos blood pressure, systolic 112 mm[Hg] Dac ia Marielos oxygen saturation, oximetry 97 % Juana Marielos respiratory rate E&M 16 /min Juana V oss pulse rate 50 /min Juana Marielos weight E&M 174 [lb_av] Juana Marielos height E&M 68 [in_i] Juana Marielos ALLERGIES Allergy Name Onset Date Reaction Criticality Status AMOXICILLIN rash rash Low Criticality suspende d CEPHALEXIN Low Criticality active WASP Low Criticality active RESULTS Date Observation Value Provider Reference Range Interpretation Location 0 D-dimer quantitative mcg/mL 0.31 MG/L FEU [facility] 0.00-0.49 0 pro brain natriuretic peptide 638 pg/mL [facility] 0-376 High 0 lipoprotein, beta, serum, point, quantitative, calculated 36 mg/dL [facility] 0-99 0 HDL cholesterol, serum 56 mg/dL [facility] >39 0 triglyceride, serum, random 133 mg/dL [facility] 0-149 0 cholesterol, serum 115 mg/dL [facility] 101-431 0413/09/3 0 calcium, serum 9.3 mg/dL [facility] 8.6-10.2 0 carbon dioxide, venous blood 23 mmol/L [facility] 20-29 0 chloride, serum 103 mmol/L [facility] 96-106 0 potassium, serum 5.6 mmol/L [facility] 3.5-5.2 High 0 sodium, serum 141 mmol/L [facility] 257-884 5245/09/3 0 urea nitrogen/creatinine ratio, serum 19 [facility] 10-24 0 eGFR if 30 mL/min/{1 .73_m2} [facility] >59 Low 0 eGFR if not 26 mL/min/{1 .73_m2} [facility] >59 Low 0 creatinine, serum 2.52 mg/dL [facility] 0.76-1.27 High 0 urea nitrogen, blood 49 mg/dL [facility] 8-27 High 0 blood glucose, random 95 mg/dL [facility] 65-99 4 lipoprotein, beta, serum, point, quantitative, calculated 54 mg/dL [facility] 0-99 4 HDL cholesterol, serum 69 mg/dL [facility] >39 4 triglyceride, serum, random 130 mg/dL [facility] 0-149 4 cholesterol, serum 145 mg/dL [facility] 132-985 0912/01/1 4 calcium, serum 9.4 mg/dL [facility] 8.6-10.2 4 carbon dioxide, venous blood 22 mmol/L [facility] 20-29 4 chloride, serum 104 mmol/L [facility] 96-106 4 potassium, serum 5.6 mmol/L [facility] 3.5-5.2 High 4 sodium, serum 140 mmol/L [facility] 866-178 0765/01/1 4 urea nitrogen/creatinine ratio, serum 11 [facility] 10-24 4 eGFR if 35 mL/min/{1 .73_m2} [facility] >59 Low 4 eGFR if not 30 mL/min/{1 .73_m2} [facility] >59 Low 4 creatinine, serum 2.20 mg/dL [facility] 0.76-1.27 High 4 urea nitrogen, blood 25 mg/dL [facility] 8-27 4 blood glucose, random 110 mg/dL [facility] 65-99 High 5 lipoprotein, beta, serum, point, quantitative, calculated 106 mg/dL [facility] 0-99 High 5 very low density lipoproteins 46 mg/dL [facility] 5-40 High 5 HDL cholesterol, serum 62 mg/dL [facility] >39 5 triglyceride, serum, random 230 mg/dL [facility] 0-149 High 5 cholesterol, serum 214 mg/dL [facility] 100-199 High 5 calcium, serum 8.9 mg/dL [facility] 8.6-10.2 5 carbon dioxide, venous blood 22 mmol/L [facility] 20-29 5 chloride, serum 101 mmol/L [facility] 96-106 5 potassium, serum 5.3 mmol/L [facility] 3.5-5.2 High 5 sodium, serum 137 mmol/L [facility] 286-681 3452/10/1 5 urea nitrogen/creatinine ratio, serum 13 [facility] 10-24 5 eGFR if 40 mL/min/{1 .73_m2} [facility] >59 Low 5 eGFR if not 34 mL/min/{1 .73_m2} [facility] >59 Low 5 creatinine, serum 2.00 mg/dL [facility] 0.76-1.27 High 5 urea nitrogen, blood 26 mg/dL [facility] 8-27 5 blood glucose, random 102 mg/dL [facility] 65-99 High 9 uric acid, serum 6.2 mg/dL [facility] 3.7-8.6 9 alanine aminotransferase (SGPT), serum 32 1/L [facility] 0-44 9 aspartate aminotransferase (SGOT), serum 31 1/L [facility] 0-40 9 alkaline phosphatase, serum 73 1/L [facility] 39-117 9 bilirubin, serum, direct 0.26 mg/dL [facility] 0.00-0.40 9 bilirubin, serum, total 0.7 mg/dL [facility] 0.0-1.2 9 albumin, serum 4.4 g/dL [facility] 3.6-4.8 9 protein, total, serum 6.5 g/dL [facility] 6.0-8.5 9 calcium, serum 9.1 mg/dL [facility] 8.6-10.2 9 carbon dioxide, venous blood 22 mmol/L [facility] 20-29 9 chloride, serum 103 mmol/L [facility] 96-106 9 potassium, serum 4.9 mmol/L [facility] 3.5-5.2 9 sodium, serum 140 mmol/L [facility] 293-786 0763/04/0 9 urea nitrogen/creatinine ratio, serum 14 [facility] 10-24 9 eGFR if 38 mL/min/{1 .73_m2} [facility] >59 Low 9 eGFR if not 33 mL/min/{1 .73_m2} [facility] >59 Low 9 creatinine, serum 2.10 mg/dL [facility] 0.76-1.27 High 9 urea nitrogen, blood 29 mg/dL [facility] 8-27 High 9 blood glucose, random 88 mg/dL [facility] 65-99 2 lipoprotein, beta, serum, point, quantitative, calculated 44 mg/dL [facility] 0-99 2 very low density lipoproteins 12 mg/dL [facility] 5-40 2 HDL cholesterol, serum 44 mg/dL [facility] >39 2 triglyceride, serum, random 59 mg/dL [facility] 0-149 2 cholesterol, serum 100 mg/dL [facility] 233-728 9316/02/1 2 calcium, serum 8.7 mg/dL [facility] 8.6-10.2 2 carbon dioxide, venous blood 23 mmol/L [facility] 20-29 2 chloride, serum 102 mmol/L [facility] 96-106 2 potassium, serum 5.7 mmol/L [facility] 3.5-5.2 High 2 sodium, serum 138 mmol/L [facility] 501-959 7239/02/1 2 urea nitrogen/creatinine ratio, serum 13 [facility] 10-24 2 eGFR if 35 mL/min/{1 .73_m2} [facility] >59 Low 2 eGFR if not 30 mL/min/{1 .73_m2} [facility] >59 Low 2 creatinine, serum 2.23 mg/dL [facility] 0.76-1.27 High 2 urea nitrogen, blood 29 mg/dL [facility] 8-27 High 2 blood glucose, random 97 mg/dL [facility] 65-99 9 pro brain natriuretic peptide 767 pg/mL [facility] 0-210 High 9 thyroid stimulating hormone, serum 3.710 u[IU]/mL [facility] 0.450-4.500 9 lipoprotein, beta, serum, point, quantitative, calculated 91 mg/dL [facility] 0-99 9 very low density lipoproteins 17 mg/dL [facility] 5-40 9 HDL cholesterol, serum 69 mg/dL [facility] >39 9 triglyceride, serum, random 86 mg/dL [facility] 0-149 9 cholesterol, serum 177 mg/dL [facility] 835-290 9640/01/0 9 calcium, serum 9.3 mg/dL [facility] 8.6-10.2 9 carbon dioxide, venous blood 21 mmol/L [facility] 20-29 9 chloride, serum 98 mmol/L [facility] 96-106 9 potassium, serum 5.0 mmol/L [facility] 3.5-5.2 9 sodium, serum 138 mmol/L [facility] 433-282 9398/01/0 9 urea nitrogen/creatinine ratio, serum 20 [facility] 10-24 9 eGFR if 30 mL/min/{1 .73_m2} [facility] >59 Low 9 eGFR if not 26 mL/min/{1 .73_m2} [facility] >59 Low 9 creatinine, serum 2.56 mg/dL [facility] 0.76-1.27 High 9 urea nitrogen, blood 51 mg/dL [facility] 8-27 High 9 blood glucose, random 115 mg/dL [facility] 65-99 High HISTORY OF MEDICATION USE Medication Status Instructions Dates Provider Indications Com ments Eliquis 5 mg tablet active TAKE 1 TABLE T BY MOUTH TWICE DAILY Gregorio Umana MD lisinopril 20 mg tablet active Take 1 tablet by mouth once a day Gregorio Umana MD lisinopril 5 mg tablet completed TAKE 1 TABLET BY MOUTH DAILY - 04/17 [facility] prednisone 5 mg tablet completed - 03/19 Paulette Martinez methotrexate sodium 2.5 mg tablet completed TAKE 2 TABLETS IN THE MORNING AND 2 TABLETS IN THE EVENING BY MOUTH ONCE WEEKLY - 03/19 Paulette Martinez calcitriol 0.25 mcg capsule active Gregorio Umana MD atorvastatin 40 mg tablet active TAKE 1 TABLET BY MOUTH EVERY NIGHT 04/20 Georgina Mei Eliquis 5 mg tablet completed Take 1 table t by mouth twice a day TAKE 1 TABLET BY MOUTH TWICE DAILY 02/16 - Gregorio Umana MD amiodarone 100 mg tablet active TAKE 1 TABLET BY MOUTH EVERY DAY 10/15 Gregorio Umana MD ezetimibe 10 mg tablet active TAKE 1 TABLET BY MOUTH EVERY DAY 10/14 Елена Ahuja amiodarone 200 mg tablet completed Take 1 tablet by mouth once a day - 10/15 Amber Jordan RN Eliquis 5 mg tablet completed TAKE 1 TABLE T BY MOUTH TWICE DAILY 02/21 - 02/16 Vicky Goldman metoprolol tartrate 25 mg tablet active TAKE 1 TABLET BY MOUTH TWICE DAILY Gregorio Umana MD lisinopril 10 mg tablet completed Take 1 tablet by mouth once a day 06/09 - Jorge Solis cephalexin 500 mg capsule completed - 05/17 Gregorio Umana MD methylprednisolone 4 mg tablets,dose pack completed Take 1 tablet by mouth twice a day - 05/17 Gregorio Umana MD Pepcid 40 mg tablet completed Take 1 table t by mouth once a day - 05/17 Gregorio Umana MD doxycycline hyclate 100 mg capsule completed Take 1 capsule by mouth twice a day - 05/17 Gregorio Umana MD furosemide 40 mg tablet active Take 1 tablet by mouth every other day Gregorio Umana MD Vitamin B-12 1,000 mcg tablet active 1 tablet once a day 11/21 Shirley Bedolla amlodipine 5 mg tablet active 1 tablet by mouth once a day 10/20 Gregorio Umana MD VITAMIN C TABLET active Take once a week 10/20 Shirley Bedolla MULTIVITAMINS CAPS active 1 tablet once a day 10/20 Shirley Bedolla ezetimibe 10 mg tablet completed Take 1 tablet by mouth once a day 11/04 - 05/16 Gregorio Umana MD atorvastatin 40 mg tablet completed Take 1 tablet by mouth every night 05/17 - 04/20 Georgina Mei METOPROLOL TARTRATE 25 MG ORAL TABLET completed one tab. twice daily 11/04 - 11/19 Gregorio Umana MD amiodarone 200 mg tablet completed Take 1 tablet by mouth once a day 11/21 - 02/03 Gregorio Umana MD Eliquis 5 mg tablet completed Take 1 table t by mouth twice a day 10/16 - 02/21 Vicky Goldman FUROSEMIDE 20 MG ORAL TABLET completed twice daily 11/04 - 10/23 Gregorio Umana MD lisinopril 5 mg tablet completed Take 1 tablet by mouth once a day 11/23 - 06/09 Victorina Cowan metoprolol tartrate 50 mg tablet completed Take 1 tablet by mouth twice a day 12/02 - Zulema Null SOCIAL HISTORY Date Observation Value Provider smoking status Never smoker Gregorio hassan MD smoking status Never smoker Mervat Martinez social history E&M S moking History: Patrice ibrahim has never smoked. Gregorio Umana MD social history reviewed E&M revi ewed - no changes required Gregorio Umana MD smoking status Never smoker Gregorio hassan MD social history E&M S moking History: Patrice ibrahim has never smoked. Gregorio Umana MD smoking status Never smoker Gregorio hassan MD social history reviewed E&M revi ewed - no changes required Gregorio Umana MD social history E&M S moking History: Patrice ibrahim has never smoked. Gregorio Umana MD social history reviewed E&M revi ewed - no changes required Gregorio Umana MD smoking status Never smoker Chelo Shavonne social history E&M S moking History: Patrice ibrahim has never smoked. Gregorio Umana MD social history reviewed E&M revi ewed - no changes required Gregorio Umana MD smoking status Never smoker Fatemeh Morgan and smoking status Never smoker Gregorio hassan MD social history reviewed E&M revi ewed - no changes required Gregorio Umana MD social history E&M S moking History: P patrice has never smoked. Gregorio Umana MD social history reviewed E&M revi ewed - no changes required Gregorio Umana MD smoking status Never smoker Leyla haines social history E&M S moking History: Patrice ibrahim has never smoked. Gregorio Umana MD social history reviewed E&M revi ewed - no changes required Gregorio Umana MD smoking status Never smoker Shirley cardosoer social history E&M S moking History: Patrice ibrahim has never smoked. Gregorio Umana MD social history reviewed E&M revi ewed - no changes required Gregorio Umana MD smoking status Never smoker Shirley ellison social history E&M S moking History: Patrice ibrahim has never smoked. Gregorio Umana MD social history reviewed E&M revi ewed - no changes required Gregorio Umana MD smoking status Never smoker Lavern Gifty kemp social history E&M S moking History: Patrice ibrahim has never smoked. Gregorio Umana MD social history reviewed E&M revi ewed - no changes required Gregorio Umana MD smoking status Never smoker Leyla haines social history reviewed E&M revi ewed - no changes required Gregorio Umana MD smoking status Never smoker Leyla Franco haines social history E&M S moking History: Patrice ibrahim has never smoked. Gregorio Umana MD social history reviewed E&M revi ewed - no changes required Gregorio Umana MD number of grandchildren Gregorio Umana MD FAMILY HISTORY Family Member Condition First Degree Blood Relative No Known Fam simeon History INSURANCE PROVIDERS Payer name Policy type / Coverage type [employer] party ID [employer] MEDICARE ADVANTAGE ST 0 003 (HMO POS) Medicare [id number] ADVANCE DIRECTIVES Name Date DISCUSSED - NO DECISION MADE TREATMENT PLAN Date Name Performer [id number],Gregorio [place] [id number],Gregorio Thomas ra, [place] [id number],SGregorio ra, [place] [id number],S, H is updated medication list for this problem includes: Lisinopril 5 Mg Tablet (Lisinopril) ..... Take 1 tablet by mouth daily Metoprolol Tartrate 50 Mg Tablet (Metoprolol tartrate) ..... Take 1 tablet by mouth twice daily Amiodarone 200 Mg Tablet (Amiodarone) ..... Take 1 tablet by mouth every day Amlodipine 5 Mg Tablet (Amlodipine) ..... 1 tablet by mouth once a day Gregorio Umana MD [id number],Gregorio Cash ra, [place] [id number],S, H is updated medication list for this problem includes: Atorvastatin 40 Mg Tablet (Atorvastatin) ..... Take 1 tablet by mouth every night Ezetimibe 10 Mg Tablet (Ezetimibe) ..... Take 1 tablet by mouth every day Gregorio Umana MD [id number],Gregorio Cash ra, [place] [id number],S, B P today: 159/98 P rior BP: 154/82 (05/16/2023) His updated medication list for this problem includes: Lisinopril 5 Mg Tablet (Lisinopril) ..... Take 1 tablet by mouth daily Metoprolol Tartrate 50 Mg Tablet (Metoprolol tartrate) ..... Take 1 tablet by mouth twice daily Furosemide 40 Mg Tablet (Furosemide) ..... Take 1 tablet by mouth every other day Amlodipine 5 Mg Tablet (Amlodipine) ..... 1 tablet by mouth once a day Gregorio Umana MD [id number],SGregorio ra, MD [id number],S, Gregorio Carrillo ra, MD [id number],S, Gregorio Carrillo ra, [place] [id number],W, Gregorio Carrillo ra[place] [id number],S, Gregorio Carrillo ra[place] [id number],S, H is updated medication list for this problem includes: Atorvastatin 40 Mg Tablet (Atorvastatin) ..... Take 1 tablet by mouth every night Ezetimibe 10 Mg Tablet (Ezetimibe) ..... Take 1 tablet by mouth every day Gregorio Umana MD [id number],S, Gregorio Carrillo ra, [place] [id number],B, Gregorio Carrillo ra[place] [id number],SGregorio ra, [place] [id number],C, B P today: 154/82 P rior BP: 168/91 (11/15/2022) His updated medication list for this problem includes: Lisinopril 5 Mg Tablet (Lisinopril) ..... Take 1 tablet by mouth daily Metoprolol Tartrate 50 Mg Tablet (Metoprolol tartrate) ..... Take 1 tablet by mouth twice daily Furosemide 40 Mg Tablet (Furosemide) ..... Take 1 tablet by mouth every other day Amlodipine 5 Mg Tablet (Amlodipine) ..... 1 tablet by mouth once a day Gregorio Umana MD [id number],SGregorio ra, MD [id number],S, Gregorio Carrillo ra, MD [id number],B, Gregorio Carrillo ra, MD [id number],S, H is updated medication list for this problem includes: Ezetimibe 10 Mg Tablet (Ezetimibe) ..... Take 1 tablet by mouth every day Atorvastatin 40 Mg Tablet (Atorvastatin) ..... Take 1 tablet by mouth every night Ezetimibe 10 Mg Tablet (Ezetimibe) ..... Take 1 tablet by mouth once a day Gregorio Umana MD [id number],S, Gregorio Carrillo ra, MD [id number],S, Gregorio Carrillo ra, MD [id number],S, B P today: 168/91 P rior BP: 108/82 (05/17/2022) H is updated medication list for this problem includes: Furosemide 40 Mg Tablet (Furosemide) ..... Take 1 tablet by mouth every other day Lisinopril 5 Mg Tablet (Lisinopril) ..... Take 1 tablet by mouth daily Metoprolol Tartrate 50 Mg Tablet (Metoprolol tartrate) ..... Take 1 tablet by mouth twice daily Amlodipine 5 Mg Tablet (Amlodipine) ..... 1 tablet by mouth once a day Gregorio Umana MD [id number],S, Gregorio Carrillo ra, MD [id number],S, Gregorio Carrillo ra, MD [id number],S, Gregorio Carrillo ra, MD [id number],S, Gregorio Carrillo ra, MD [id number],S, Gregorio Carrillo ra, MD [id number],S, H is updated medication list for this problem includes: Atorvastatin 40 Mg Tablet (Atorvastatin) ..... Take 1 tablet by mouth every night Ezetimibe 10 Mg Tablet (Ezetimibe) ..... Take 1 tablet by mouth once a day Gregorio Umana MD [id number],S, B P today: 108/82 P rior BP: 130/90 (11/16/2021) His updated medication list for this problem includes: Furosemide 40 Mg Tablet (Furosemide) ..... Take 1 tablet by mouth every other day Lisinopril 5 Mg Tablet (Lisinopril) ..... Take 1 tablet by mouth daily Metoprolol Tartrate 50 Mg Tablet (Metoprolol tartrate) ..... Take 1 tablet by mouth twice daily Amlodipine 5 Mg Tablet (Amlodipine) ..... 1 tablet by mouth once a day Gregorio Umana MD [id number],S, Gregorio Carrillo ra, MD [id number],S, Gregorio Carrillo ra, MD [id number],S, Gregorio Carrillo ra, MD [id number],S, H is updated medication list for this problem includes: Atorvastatin 40 Mg Tablet (Atorvastatin) ..... Take 1 tablet by mouth every night Ezetimibe 10 Mg Tablet (Ezetimibe) ..... Take 1 tablet by mouth once a day Gregorio Umana MD [id number],S, H is updated medication list for this problem includes: Amiodarone 200 Mg Tablet (Amiodarone) ..... Take 1 tablet by mouth once a day Metoprolol Tartrate 50 Mg Tablet (Metoprolol tartrate) ..... Take 1 tablet by mouth twice daily Lisinopril 5 Mg Tablet (Lisinopril) ..... Take 1 tablet by mouth daily Amlodipine 5 Mg Tablet (Amlodipine) ..... 1 tablet by mouth once a day Gregorio Umana MD [id number],S, B P today: 130/90 P rior BP: 120/70 (05/18/2021) His updated medication list for this problem includes: Metoprolol Tartrate 50 Mg Tablet (Metoprolol tartrate) ..... Take 1 tablet by mouth twice daily Lisinopril 5 Mg Tablet (Lisinopril) ..... Take 1 tablet by mouth daily Furosemide 40 Mg Tablet (Furosemide) ..... Take 1 tablet by mouth once a day Amlodipine 5 Mg Tablet (Amlodipine) ..... 1 tablet by mouth once a day Gregorio Umana MD [id number],S, c ompensated Gregorio Umana MD [id number],S, e GFR 30 on BMP, K 5.7. was referred to Dr. Harrison in , but did not see him Gregorio Umana MD [id number],S, Gregorio Carrillo ra, MD [id number],W, Gregorio Carrillo ra, MD [id number],S, H is updated medication list for this problem includes: Atorvastatin 40 Mg Tablet (Atorvastatin) ..... Take 1 tablet by mouth every night Ezetimibe 10 Mg Tablet (Ezetimibe) ..... Take 1 tablet by mouth once a day Gregorio Umana MD [id number],S, d mariza CP, SOB. Gregorio Umana MD [id number],S, B P today: 120/70 P rior BP: 120/70 (11/17/2020) His updated medication list for this problem includes: Furosemide 40 Mg Tablet (Furosemide) ..... Take 1 tablet by mouth once a day Metoprolol Tartrate 50 Mg Tablet (Metoprolol tartrate) ..... Take 1 tablet by mouth twice a day Lisinopril 5 Mg Tablet (Lisinopril) ..... Take 1 tablet by mouth once a day Amlodipine 5 Mg Tablet (Amlodipine) ..... 1 tablet by mouth once a day Gregorio Umana MD [id number],S, Gregorio Carrillo ra, MD Cardiology Gregorio Nelson Cardiology Gregorio Nelson Cardiology Gregorio Nelson Cardiology Gregorio Nelson Cardiology Gregorio Nelson Cardiology:This visi t has been a part of the consistent, comprehensive, and ongoing management of the chronic medical condition(s) listed above for the patient. B P today: 139/86 P rior BP: 138/88 (03/19/2024) Labs Reviewed: C reat: 2.52 (07/09/2021) C hol: 115 (07/09/2021) HDL: 56 (07/09/2021) LDL: 36 (07/09/2021) T (07/09/2021) His updated medication list for this problem includes: Metoprolol Tartrate 25 Mg Tablet (Metoprolol tartrate) ..... Take 1 tablet by mouth twice daily Lisinopril 20 Mg Tablet (Lisinopril) ..... Take 1 tablet by mouth once a day Furosemide 40 Mg Tablet (Furosemide) ..... Take 1 tablet by mouth every other day Amlodipine 5 Mg Tablet (Amlodipine) ..... 1 tablet by mouth once a day Gregorio Umana MD Cardiology: H is updated medication list for this problem includes: Atorvastatin 40 Mg Tablet (Atorvastatin) ..... Take 1 tablet by mouth every night Ezetimibe 10 Mg Tablet (Ezetimibe) ..... Take 1 tablet by mouth every day Gregorio Umana MD Cardiology Gregorio Nelson Cardiology: H is updated medication list for this problem includes: Amiodarone 200 Mg Tablet (Amiodarone) ..... Take 1 tablet by mouth every day Metoprolol Tartrate 50 Mg Tablet (Metoprolol tartrate) ..... Take 1 tablet by mouth twice daily Lisinopril 5 Mg Tablet (Lisinopril) ..... Take 1 tablet by mouth daily Amlodipine 5 Mg Tablet (Amlodipine) ..... 1 tablet by mouth once a day Gregorio Umana MD Cardiology: H is updated medication list for this problem includes: Atorvastatin 40 Mg Tablet (Atorvastatin) ..... Take 1 tablet by mouth every night Ezetimibe 10 Mg Tablet (Ezetimibe) ..... Take 1 tablet by mouth every day Gregorio Umana MD Cardiology:BP is wel l controlled BP today: 138/88 P rior BP: 133/86 (09/19/2023) Labs Reviewed: C reat: 2.52 (07/09/2021) C hol: 115 (07/09/2021) HDL: 56 (07/09/2021) LDL: 36 (07/09/2021) T (07/09/2021) His updated medication list for this problem includes: Metoprolol Tartrate 50 Mg Tablet (Metoprolol tartrate) ..... Take 1 tablet by mouth twice daily Lisinopril 5 Mg Tablet (Lisinopril) ..... Take 1 tablet by mouth daily Furosemide 40 Mg Tablet (Furosemide) ..... Take 1 tablet by mouth every other day Amlodipine 5 Mg Tablet (Amlodipine) ..... 1 tablet by mouth once a day Gregorio Umana MD Cardiology: B P today: 133/86 P rior BP: 159/98 (06/20/2023) Labs Reviewed: C reat: 2.52 (07/09/2021) C hol: 115 (07/09/2021) HDL: 56 (07/09/2021) LDL: 36 (07/09/2021) T (07/09/2021) His updated medication list for this problem includes: Metoprolol Tartrate 50 Mg Tablet (Metoprolol tartrate) ..... Take 1 tablet by mouth twice daily Lisinopril 5 Mg Tablet (Lisinopril) ..... Take 1 tablet by mouth daily Furosemide 40 Mg Tablet (Furosemide) ..... Take 1 tablet by mouth every other day Amlodipine 5 Mg Tablet (Amlodipine) ..... 1 tablet by mouth once a day Gregorio Umana MD Cardiology Gregorio Nelson Cardiology Gregorio Nelson Cardiology: H is updated medication list for this problem includes: Metoprolol Tartrate 50 Mg Tablet (Metoprolol tartrate) ..... Take 1 tablet by mouth twice daily Lisinopril 5 Mg Tablet (Lisinopril) ..... Take 1 tablet by mouth daily Amiodarone 200 Mg Tablet (Amiodarone) ..... Take 1 tablet by mouth every day Amlodipine 5 Mg Tablet (Amlodipine) ..... 1 tablet by mouth once a day Gregorio Umana MD Cardiology Gregorio Nelson Cardiology Gregorio Nelson Cardiology: H is updated medication list for this problem includes: Ezetimibe 10 Mg Tablet (Ezetimibe) ..... Take 1 tablet by mouth every day Atorvastatin 40 Mg Tablet (Atorvastatin) ..... Take 1 tablet by mouth every night Gregorio Umana MD Cardiology Gregorio Nelson Cardiology Gregorio Nelson Cardiology Gregorio Nelson Cardiology Gregorio Nelson Cardiology: H is updated medication list for this problem includes: Lisinopril 5 Mg Tablet (Lisinopril) ..... Take 1 tablet by mouth daily Metoprolol Tartrate 50 Mg Tablet (Metoprolol tartrate) ..... Take 1 tablet by mouth twice daily Amiodarone 200 Mg Tablet (Amiodarone) ..... Take 1 tablet by mouth every day Amlodipine 5 Mg Tablet (Amlodipine) ..... 1 tablet by mouth once a day Gregorio Umana MD Cardiology Gregorio Nelson Cardiology: H is updated medication list for this problem includes: Atorvastatin 40 Mg Tablet (Atorvastatin) ..... Take 1 tablet by mouth every night Ezetimibe 10 Mg Tablet (Ezetimibe) ..... Take 1 tablet by mouth every day Gregorio Umana MD Cardiology Gregorio Nelson Cardiology: B P today: 159/98 P rior BP: 154/82 (05/16/2023) His updated medication list for this problem includes: Lisinopril 5 Mg Tablet (Lisinopril) ..... Take 1 tablet by mouth daily Metoprolol Tartrate 50 Mg Tablet (Metoprolol tartrate) ..... Take 1 tablet by mouth twice daily Furosemide 40 Mg Tablet (Furosemide) ..... Take 1 tablet by mouth every other day Amlodipine 5 Mg Tablet (Amlodipine) ..... 1 tablet by mouth once a day Gregorio Umana MD Cardiology Gregorio Nelson Cardiology Gregorio Nelson Cardiology Gregorio Nelson Cardiology Gregorio Nelson Cardiology Gregorio Nelson Cardiology: H is updated medication list for this problem includes: Atorvastatin 40 Mg Tablet (Atorvastatin) ..... Take 1 tablet by mouth every night Ezetimibe 10 Mg Tablet (Ezetimibe) ..... Take 1 tablet by mouth every day Gregorio Umana MD Cardiology Gregorio Nelson Cardiology Gregorio Nelson Cardiology Gregorio Nelson Cardiology: B P today: 154/82 P rior BP: 168/91 (11/15/2022) His updated medication list for this problem includes: Lisinopril 5 Mg Tablet (Lisinopril) ..... Take 1 tablet by mouth daily Metoprolol Tartrate 50 Mg Tablet (Metoprolol tartrate) ..... Take 1 tablet by mouth twice daily Furosemide 40 Mg Tablet (Furosemide) ..... Take 1 tablet by mouth every other day Amlodipine 5 Mg Tablet (Amlodipine) ..... 1 tablet by mouth once a day Gregorio Umana MD Cardiology Gregorio Nelson Cardiology Gregorio Nelson Cardiology Gregorio Nelson Cardiology: H is updated medication list for this problem includes: Ezetimibe 10 Mg Tablet (Ezetimibe) ..... Take 1 tablet by mouth every day Atorvastatin 40 Mg Tablet (Atorvastatin) ..... Take 1 tablet by mouth every night Ezetimibe 10 Mg Tablet (Ezetimibe) ..... Take 1 tablet by mouth once a day Gregorio Umana MD Cardiology Gregorio Nelson Cardiology Gregorio Nelson Cardiology: B P today: 168/91 P rior BP: 108/82 (05/17/2022) H is updated medication list for this problem includes: Furosemide 40 Mg Tablet (Furosemide) ..... Take 1 tablet by mouth every other day Lisinopril 5 Mg Tablet (Lisinopril) ..... Take 1 tablet by mouth daily Metoprolol Tartrate 50 Mg Tablet (Metoprolol tartrate) ..... Take 1 tablet by mouth twice daily Amlodipine 5 Mg Tablet (Amlodipine) ..... 1 tablet by mouth once a day Gregorio Umana MD Cardiology Gregorio Nelson Cardiology Gregorio Nelson Cardiology Gregorio Nelson Cardiology Gregorio Nelson Cardiology Gregorio Nelson Cardiology: H is updated medication list for this problem includes: Atorvastatin 40 Mg Tablet (Atorvastatin) ..... Take 1 tablet by mouth every night Ezetimibe 10 Mg Tablet (Ezetimibe) ..... Take 1 tablet by mouth once a day Gregorio Umana MD Cardiology: B P today: 108/82 P rior BP: 130/90 (11/16/2021) His updated medication list for this problem includes: Furosemide 40 Mg Tablet (Furosemide) ..... Take 1 tablet by mouth every other day Lisinopril 5 Mg Tablet (Lisinopril) ..... Take 1 tablet by mouth daily Metoprolol Tartrate 50 Mg Tablet (Metoprolol tartrate) ..... Take 1 tablet by mouth twice daily Amlodipine 5 Mg Tablet (Amlodipine) ..... 1 tablet by mouth once a day Gregorio Umana MD Cardiology Gregorio Nelson Cardiology Gregorio Nelson Cardiology Gregorio Nelson Cardiology: H is updated medication list for this problem includes: Atorvastatin 40 Mg Tablet (Atorvastatin) ..... Take 1 tablet by mouth every night Ezetimibe 10 Mg Tablet (Ezetimibe) ..... Take 1 tablet by mouth once a day Gregorio Umana MD Cardiology: H is updated medication list for this problem includes: Amiodarone 200 Mg Tablet (Amiodarone) ..... Take 1 tablet by mouth once a day Metoprolol Tartrate 50 Mg Tablet (Metoprolol tartrate) ..... Take 1 tablet by mouth twice daily Lisinopril 5 Mg Tablet (Lisinopril) ..... Take 1 tablet by mouth daily Amlodipine 5 Mg Tablet (Amlodipine) ..... 1 tablet by mouth once a day Gregorio Umana MD Cardiology: B P today: 130/90 P rior BP: 120/70 (05/18/2021) His updated medication list for this problem includes: Metoprolol Tartrate 50 Mg Tablet (Metoprolol tartrate) ..... Take 1 tablet by mouth twice daily Lisinopril 5 Mg Tablet (Lisinopril) ..... Take 1 tablet by mouth daily Furosemide 40 Mg Tablet (Furosemide) ..... Take 1 tablet by mouth once a day Amlodipine 5 Mg Tablet (Amlodipine) ..... 1 tablet by mouth once a day Gregorio Umana MD Cardiology: c ompensated Gregorio Umana MD Cardiology follow up : e GFR 30 on BMP, K 5.7. was referred to Dr. Harrison in [place], but did not see him Gregorio Umana MD Cardiology follow up Gregorio oliver MD Cardiology follow up Gregorio oliver MD Cardiology follow up : H is updated medication list for this problem includes: Atorvastatin 40 Mg Tablet (Atorvastatin) ..... Take 1 tablet by mouth every night Ezetimibe 10 Mg Tablet (Ezetimibe) ..... Take 1 tablet by mouth once a day Gregorio Umana MD Cardiology follow up : leslie dawkins CP, SOB. Gregorio Umana MD Cardiology follow up : B P today: 120/70 P rior BP: 120/70 (11/17/2020) His updated medication list for this problem includes: Furosemide 40 Mg Tablet (Furosemide) ..... Take 1 tablet by mouth once a day Metoprolol Tartrate 50 Mg Tablet (Metoprolol tartrate) ..... Take 1 tablet by mouth twice a day Lisinopril 5 Mg Tablet (Lisinopril) ..... Take 1 tablet by mouth once a day Amlodipine 5 Mg Tablet (Amlodipine) ..... 1 tablet by mouth once a day Gregorio Umana MD Cardiology follow up Gregorio oliver MD Cardiology Follow up : sandra alarcon carotid duplex Gregorio Umana MD Cardiology Follow up : leslie dawkins CP, SOB. continues on metoprolol. Gregorio Umana MD Cardiology Follow up : R ENAL DUPLEX CONCLUSIONS: 1 . Left proximal to mid renal artery stenosis with doppler velocities >3 m/s. 2 . Left renal cyst on the inferior pole measuring 3.4 x 3.7 cm. 3 . The left kidney is mildly atrophic. 4 . Right renal artery velocieties are within normal limits and the kidney is unremarkable. 5 . No evidence of AAA. The iliac arteries were not visualized. Gregorio Umana MD Cardiology Follow up : H is updated medication list for this problem includes: Ezetimibe 10mg Tablets (Ezetimibe) ..... Take 1 tablet by mouth daily with atorvastatin Atorvastatin 40mg Tablets (Atorvastatin calcium) ..... Take 1 tablet by mouth at bedtime Gregorio Umana MD Cardiology Follow up Gregorio oliver MD Cardiology Follow up : B P today: 120/70 P rior BP: 210/110 (10/20/2020) His updated medication list for this problem includes: Amlodipine Besylate 5 Mg Oral Tablet (Amlodipine besylate) ..... One tab by mouth daily Lisinopril 5mg Tablets (Lisinopril) ..... Take 1 tablet by mouth daily Metoprolol Tartrate 50mg Tablets (Metoprolol tartrate) ..... Take 1 tablet by mouth twice daily Gregorio Umana MD Cardiology Follow up Gregorio oliver MD Cardiology Follow up : H is updated medication list for this problem includes: Amlodipine Besylate 5 Mg Oral Tablet (Amlodipine besylate) ..... One tab by mouth daily Amiodarone 200mg Tablets (Amiodarone hcl) ..... Take 1 tablet by mouth twice daily Lisinopril 5mg Tablets (Lisinopril) ..... Take 1 tablet by mouth daily Metoprolol Tartrate 50mg Tablets (Metoprolol tartrate) ..... Take 1 tablet by mouth twice daily Gregorio Umana MD Cardiology Follow up Gregorio oliver MD Cardiology Follow up : H is updated medication list for this problem includes: Amlodipine Besylate 5 Mg Oral Tablet (Amlodipine besylate) ..... One tab by mouth daily Lisinopril 5mg Tablets (Lisinopril) ..... Take 1 tablet by mouth daily Metoprolol Tartrate 50mg Tablets (Metoprolol tartrate) ..... Take 1 tablet by mouth twice daily BP today: 210/110 P rior BP: 122/80 (07/23/2019) Gregorio Umana MD Cardiology Follow up : leslie dawkins CP, SOB. continues on metoprolol. r echeck echo now Gregorio Umana MD Cardiology: sandra torrez amiodarone His updated medication list for this problem includes: Amiodarone Hcl 200 Mg Oral Tablet (Amiodarone hcl) ..... One tab once daily Lisinopril 5 Mg Oral Tablet (Lisinopril) ..... One tab. daily Metoprolol Tartrate 50 Mg Oral Tablet (Metoprolol tartrate) ..... One tab. twice daily Gregorio Umana MD Cardiology: N YHA class 1. denies SOB. feeling well. Gregorio Umana MD Cardiology: K + 5.7 in 11/2018, normalized in 01/2019 with K+ 4.9. will recheck BMP now Gregorio Umana MD Cardiology: L DL 44, at target. he's been off the lipitor for some reason and i will ahve him restart it now r echeck lipids now too His updated medication list for this problem includes: Atorvastatin Calcium 40 Mg Oral Tablet (Atorvastatin calcium) ..... Take one tablet daily at bedtime Gregorio Umana MD Cardiology: B P today: 122/80 P rior BP: 120/64 (01/15/2019) His updated medication list for this problem includes: Lisinopril 5 Mg Oral Tablet (Lisinopril) ..... One tab. daily Metoprolol Tartrate 50 Mg Oral Tablet (Metoprolol tartrate) ..... One tab. twice daily Gregorio Umana MD Cardiology: leslie dawkins CP, SOB. continues on metoprolol. Gregorio Umana MD Cardiology follow up : sandra alarcon uric acid. may be contributing to sxs on left hand. Gregorio Umana MD Cardiology follow up : l ast K 5.7 in 11/2018. will check BMP now Gregorio Umana MD Cardiology follow up : leslie dawkins CP, SOB. continues on metoprolol. Gregorio Umana MD Cardiology follow up : N YHA class 1. denies SOB. feeling well. Gregorio Umana MD Cardiology follow up : L DL 44, at target. remains on lipitor His updated medication list for this problem includes: Atorvastatin Calcium 40 Mg Oral Tablet (Atorvastatin calcium) ..... Take one tablet daily at bedtime Gregorio Umana MD Cardiology follow up : B P today: 120/64 P rior BP: 114/70 (10/23/2018) His updated medication list for this problem includes: Lisinopril 5 Mg Oral Tablet (Lisinopril) ..... One tab. daily Metoprolol Tartrate 50 Mg Oral Tablet (Metoprolol tartrate) ..... One tab. twice daily Gregorio Umana MD Cardiology follow up : e GFR 30 on BMP, K 5.7. was referred to Dr. 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 will decrease amiodarone dose to 200mg daily. His updated medication list for this problem includes: Amiodarone Hcl 200 Mg Oral Tablet (Amiodarone hcl) ..... One tab daily Lisinopril 5 Mg Oral Tablet (Lisinopril) ..... One tab. daily Metoprolol Tartrate 50 Mg Oral Tablet (Metoprolol tartrate) ..... One tab. twice daily Gregorio Umana MD Cardiology follow up : H is updated medication list for this problem includes: Amiodarone Hcl 200 Mg Oral Tablet (Amiodarone hcl) ..... One tab twice daily Lisinopril 5 Mg Oral Tablet (Lisinopril) ..... One tab. daily Metoprolol Tartrate 50 Mg Oral Tablet (Metoprolol tartrate) ..... One tab. twice daily Gregorio Umana MD Cardiology follow up Gregorio oliver MD Cardiology follow up : H is updated medication list for this problem includes: Furosemide 20 Mg Oral Tablet (Furosemide) ..... Twice daily Lisinopril 5 Mg Oral Tablet (Lisinopril) ..... One tab. daily Metoprolol Tartrate 50 Mg Oral Tablet (Metoprolol tartrate) ..... One tab. twice daily BP today: 114/70 P rior BP: 112/80 (09/18/2018) Labs Reviewed: C reat: 2.56 (10/18/2018) C hol: 177 (10/18/2018) HDL: 69 (10/18/2018) Gregorio Umana MD Cardiology follow up Gregorio oliver MD Cardiology follow up :stop furosemide, check bmp in one month, consider referral to Energy Manager Gregorio Umana MD Cardiology follow up : H is updated medication list for this problem includes: Atorvastatin Calcium 40 Mg Oral Tablet (Atorvastatin calcium) ..... Take one tablet daily at bedtime C HOL: 177 (10/18/2018) HDL: 69 (10/18/2018) Gregorio Umana MD Cardiology follow up Gregorio oliver MD Cardiology hospital follow up: S inus bradycardia, HR 49 on EKG today. Will check echo. Gregorio Umana MD Cardiology hospital follow up: U nknown if ischemic. Will schedule nuclear stress study. Gregorio Umana MD Cardiology hospital follow up: W ell-controlled. His updated medication list for this problem includes: Furosemide 20 Mg Oral Tablet (Furosemide) ..... Twice daily Lisinopril 5 Mg Oral Tablet (Lisinopril) ..... One tab. daily Metoprolol Tartrate 50 Mg Oral Tablet (Metoprolol tartrate) ..... One tab. twice daily BP today: 112/80 Gregorio Umana MD Cardiology hospital follow up: D alleyies shortness of breath, PND. Will check pBNP. Gregorio Umana MD Cardiology hospital follow up: Pamela torrez. Sinus bradycardia on EKG today. Gregorio Umana MD Date Name CXR- PA/Lat T-4, FREE TSH, 3RD GENERATION HEPATIC FUNCTION MILLER EL Carotid Duplex Bilat eral CXR- PA/Lat T-4, FREE TSH, 3RD GENERATION HEPATIC FUNCTION MILLER EL Complete Echo LIPID PANEL BASIC METABOLIC PANE L W/EGFR Complete Echo TSH, free T4, total T3 COMPREHENSIVE METABO LIC PANEL, W/EGFR CXR- PA/Lat Venous Doppler Bilat eral LE - Reflux Carotid Duplex Bilat eral LIPID PANEL BASIC METABOLIC PANE L W/EGFR Renal Artery Duplex Complete Echo LIPID PANEL BASIC METABOLIC PANE L W/EGFR HEPATIC FUNCTION MILLER EL URIC ACID BASIC METABOLIC PANE L W/EGFR BASIC METABOLIC PANE L W/EGFR LIPID PANEL LIPID PANEL TSH, 3RD GENERATION W/REFLEX TO FT4 LIPID PANEL PROBNP, N TERMINAL BASIC METABOLIC PANE L W/EGFR STR - Exercise Nucle ar Complete Echo HISTORY OF PROCEDURES Procedure Date Procedure Name Provider Procedure Notes S tatus Complex e/m visit ad d on Gregorio Umana MD completed EKG Gregorio Umana MD complet ed EKG Gregorio Umana MD complet ed EKG Gregorio Umana MD complet ed EKG Gregorio Umana MD complet ed Regadenoson, 4 units Gregorio Umana MD completed Cardiolite, 2 units Gregorio Umana MD completed SPECT Images Clarke Moran MD completed Stress EKG Lucio Duarte MD complete d EKG Gregorio Umana MD complet ed Event Monitor Holden Clark MD complet ed
--- OUTSIDE RECORDS SUMMARY | 2025-03-11 12:01 | XMS_ITS | Data Portability ---
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 He reports dysfunction in the hand, with inability to raise his wrist or straighten his fingers, as well as poor control of his fingers, especially the ring and small fingers. He also reports some pain radiating from his elbow down the forearm. He has not had any treatments. Review of systems per patient questionnaire Physical exam: He is skin discoloration throughout his forearm. He holds his hand in the ulnar claw position, and has a wrist drop. He has some tenderness over the posterior elbow, good range of motion but with pain in terminal extension and flexion. He does have positive Tinel's over the cubital tunnel. He is unable to extend his wrist or fingers actively, but has retained passive range of motion. He has difficulty with abducting and adducting his fingers. He has sensation intact to light touch throughout, brisk cap refill, 2+ radial pulse. X-rays of the elbow were reviewed, demonstrating peripheral osteophytes He has some findings suggestive peripheral neuropathy but his history of stroke is also concerning. We will obtain an EMG to better identify the location of his pathology. We will see him back after the EMG to discuss appropriate treatment options, which may include peripheral nerve compression or tendon transfer. [email or web address] Not available 04/25/2023 14:30:19 06/22/2023 06/22/2023 Will continue current therapy follow-up in 4 months [email or web address] Not available 07/05/2023 10:32:29 Plan of Treatment Reminders Order Date Submit Date Provider Last Modified By Organization Details Last Modified Time Details Appointments None recorded. Lab uric acid, serum or plasma 2022 023 EMILY [facility], [address] [facility], [place], [address], 3 12:16:02 PSA, serum or plasma 2022 023 [email or web address] [facility], [address] [facility], [address], [place], [address], 3 10:05:52 CBC w/ auto diff 2022 023 EMILY [facility], [address] [facility], [address], [place], [address], 3 15:34:54 CMP, serum or plasma 2022 023 EMILY [facility], [address] [facility], [address], [place], [address], 3 12:15:59 lipid panel, serum 2022 023 EMILY [facility], [address], [address], [place], [address], 3 09:18:03 TSH, serum or plasma 2022 023 EMILY [facility], [address] [facility], [address], [place], [address], 3 12:44:33 T4, free, serum 2022 023 EMILY [facility], [address] [facility] [address], [place], [address], 3 12:30:35 T3, free, serum or plasma 2022 023 EMILY [facility], [address] [facility] [address], [place], [address], 3 13:12:42 Referral None recorded. Procedures nerve conduction study/EMG, upper extremity (PROC) 2022 023 [facility] (Cardiology & Emg), [address] [place] [address] [address], [place], [address], 14:30:37 Surgeries None recorded. Imaging XR, elbow 2022 023 [email or web address], [facility], [place], [address], 3 10:00:07 Medication Orders colchicine 0.6 mg tablet [email or web address] [id number], [address], [place], [place], [id number], 15:54:47 Patient TargetsNo targets recorded. Patient InstructionsNo instructions recorded. Reason for Referral None Reported. Results Created Date Observation Date Name Description Value Unit Range Abnormal Flag Note LastModifiedBy Organization Detail LastModifiedTime 02/04/20 22 02/03/2022 LIPID PANEL cholesterol 117 mg/dL 140-19 9 low NIH JAMAAL NSUS RECOM MENDA TION FOR GISEL STERO L: ADULT CHILD LOW RISK: <200 <170 BORDE RLINE : <200- 239 ----- HIGH RISK: >240 >200 Not Available [facility] (Lab) [address] [facility], [place], [address], 02/03/2022 10:29:26 02/04/20 22 02/03/2022 LIPID PANEL triglyceride s 92 mg/dL 0-150 NIH JAMAAL NSUS REPOR T RECOM MENDA TION FOR TRIGL YCERI VIVIEN: ADULT CHILD LOW RISK: <150 ----- BODER LINE: 150-1 99 ----- HIGH RISK: >200 ----- Not Available [facility] (Lab) [address] [place], [address], 02/03/2022 10:29:26 02/04/20 22 02/03/2022 LIPID PANEL HDL cholesterol 88 mg/dL 40- Not Available [facility] (Lab) [address] [place], [address], 02/03/2022 10:29:26 02/04/20 22 02/03/2022 LIPID PANEL LDL cholesterol, calculated 11 mg/dL 0-130 NIH JAMAAL NSUS REPOR T RECOM MENDA TIONS FOR LDL: ADULT CHILD LOW RISK <130 <110 (OPTI MAL LDL) <100 ----- BORDE RLINE : 130-1 59 ----- HIGH RISK: >160 >130 A TRIGL YCERI DE RESUL T >400 INVAL IDATE S THE CALCU LATIO N FOR LDL FRACT IONAT ION - THE LDL RESUL T WILL NOT BE REPOR RAFI. Not Available [facility] [place] [facility] (Lab) [address] [place], [address], 02/03/2022 10:29:26 02/17/20 22 02/16/2022 BASIC METAB OLIC PANEL BUN 36 mg/dL 8-19 high Not Available [facility] (Lab) [address] [place], [address], 02/16/2022 15:29:38 02/17/20 22 02/16/2022 BASIC METAB OLIC PANEL sodium 134 mmol/ L 137-14 5 low Not Available [facility] (Lab) [address] [place], [address], 02/16/2022 15:29:38 02/17/20 22 02/16/2022 BASIC METAB OLIC PANEL potassium 4.4 mmol/ L 3.5-5. 1 Not Available [facility] [place] [facility] (Lab) [address] [place], [address], 02/16/2022 15:29:38 02/17/20 22 02/16/2022 BASIC METAB OLIC PANEL chloride 105 mmol/ L 98-107 Not Available [facility] [place] [facility] (Lab) [address] [place], [address], 02/16/2022 15:29:38 02/17/20 22 02/16/2022 BASIC METAB OLIC PANEL carbon dioxide 28 mmol/ L 22-30 Not Available [facility] (Lab) [address] [place], [address], 02/16/2022 15:29:38 02/17/20 22 02/16/2022 BASIC METAB OLIC PANEL anion gap 5.4 mmol/ L 14-22 low Not Available [facility] (Lab) [address] [place], [address], 02/16/2022 15:29:38 02/17/20 22 02/16/2022 BASIC METAB OLIC PANEL glucose 97 mg/dL 70-99 Not Available [facility] (Lab) [address] [place], [address], 02/16/2022 15:29:38 02/17/20 22 02/16/2022 BASIC METAB OLIC PANEL creatinine 2.16 mg/dL 0.66-1 .25 high Not Available [facility] (Lab) [address] [place], [address], 02/16/2022 15:29:38 02/17/20 22 02/16/2022 BASIC METAB OLIC PANEL GFR 31 Refer ence Range : Lewellen ge GFR Healt hy Adult : >60 mL/mi n/1.7 3 m2 Chron ic Kidne y Disea se: 15-60 mL/mi n/1.7 3 m2 Kidyuko y Failu re: <15/m L/min /1.73 m2 www.n iddk. nih.g ov The MDRD study equat ion has not been valid ated in child lilia <18 years of age; pregn ant women ; the elder ly >85 years of age; or in some racia l or ethni c subgr oups, such as Hispa nics. Outsi de the valid ated zehra eters , estim ated GFR is less accur ate, requi ring clini bouchra judgm ent on a case- by-ca se basis . Clini bouchra inter preta tion for other races and ages must be made by the clini moni. The MDRD study equat ion has not been valid ated for the evalu ation of serum creat inine relat ed to nutri gregoria l statu s or medic ation usage . For perso ns <18 years of age, a pedia tric GFR calcu lator is avail able on the [facility] websi te: https ://michael gardner.mariana antonio.o rg/pr ofess ional s/kdo qi/gf r_cal culat or Not Available [facility] (Lab) [address] [place], [address], 02/16/2022 15:29:38 02/17/20 22 02/16/2022 BASIC METAB OLIC PANEL calcium 9.1 mg/dL 8.4-10 .2 Not Available [facility] (Lab) [address] [place], [address], 02/16/2022 15:29:38 02/03/20 23 02/02/2023 COMPR EHENS SOHEILA METAB OLIC PANEL sodium 136 mmol/ L 137-14 5 low Not Available [facility] (Lab) [address] [place], [address], 02/02/2023 12:15:59 02/03/20 23 02/02/2023 COMPR EHENS SOHEILA METAB OLIC PANEL potassium 4.4 mmol/ L 3.5-5. 1 Not Available [facility] (Lab) [address] [place], [address], 02/02/2023 12:15:59 02/03/20 23 02/02/2023 COMPR EHENS SOHEILA METAB OLIC PANEL chloride 101 mmol/ L 98-107 Not Available [facility] (Lab) [address] [place], [address], 02/02/2023 12:15:59 02/03/20 23 02/02/2023 COMPR EHENS SOHEILA METAB OLIC PANEL carbon dioxide 31 mmol/ L 22-30 high Not Available [facility] (Lab) [address] [place], [address], 02/02/2023 12:15:59 02/03/20 23 02/02/2023 COMPR EHENS SOHEILA METAB OLIC PANEL anion gap 8.4 mmol/ L 14-22 low Not Available [facility] (Lab) [address] [place], [address], 02/02/2023 12:15:59 02/03/20 23 02/02/2023 COMPR EHENS SOHEILA METAB OLIC PANEL glucose 91 mg/dL 70-99 Not Available [facility] (Lab) [address] [place], [address], 02/02/2023 12:15:59 02/03/20 23 02/02/2023 COMPR EHENS SOHEILA METAB OLIC PANEL BUN 39 mg/dL 8-19 high Not Available [facility] (Lab) [address] [place], [address], 02/02/2023 12:15:59 02/03/20 23 02/02/2023 COMPR EHENS SOHEILA METAB OLIC PANEL creatinine 2.27 mg/dL 0.66-1 .25 high Not Available [facility] (Lab) [address] [place], [address], 02/02/2023 12:15:59 02/03/20 23 02/02/2023 COMPR EHENS SOHEILA METAB OLIC PANEL GFR 29 Refer ence Range : Lewellen ge GFR Healt hy Adult : >60 mL/mi n/1.7 3 m2 Chron ic Kidne y Disea se: 15-60 mL/mi n/1.7 3 m2 Kidne y Failu re: <15/m L/min /1.73 m2 www.n iddk. nih.g ov The MDRD study equat ion has not been valid ated in child lilia <18 years of age; pregn ant women ; the elder ly >85 years of age; or in some racia l or ethni c subgr oups, such as Hispa nics. Outsi de the valid ated zehra eters , estim ated GFR is less accur ate, requi ring clini bouchra judgm ent on a case- by-ca se basis . Clini bouchra inter preta tion for other races and ages must be made by the clini moni. The MDRD study equat ion has not been valid ated for the evalu ation of serum creat inine relat ed to nutri gregoria l statu s or medic ation usage . For perso ns <18 years of age, a pedia tric GFR calcu lator is avail able on the [facility] websi te: https ://michael antonio.louis tan/gen sood s/kdo qi/gf r_cal culat or Not Available [facility] (Lab) [address] [place], [address], 02/02/2023 12:15:59 02/03/20 23 02/02/2023 COMPR EHENS SOHEILA METAB OLIC PANEL alkaline phosphatase 90 U/L 38-126 Not Available [facility] (Lab) [address] [place], [address], 02/02/2023 12:15:59 02/03/20 23 02/02/2023 COMPR EHENS SOHEILA METAB OLIC PANEL alanine aminotransfe rase 21 U/L 0-50 Not Available [facility] (Lab) [address] [place], [address], 02/02/2023 12:15:59 02/03/20 23 02/02/2023 COMPR EHENS SOHEILA METAB OLIC PANEL aspartate aminotransfe rase 20 U/L 15-46 Not Available [facility] (Lab) [address] [place], [address], 02/02/2023 12:15:59 02/03/20 23 02/02/2023 COMPR EHENS SOHEILA METAB OLIC PANEL bilirubin, total 0.60 mg/dL 0.20-1 .30 Not Available [facility] (Lab) [address] [place], [address], 02/02/2023 12:15:59 02/03/20 23 02/02/2023 COMPR EHENS SOHEILA METAB OLIC PANEL calcium 8.1 mg/dL 8.4-10 .2 low Not Available [facility] (Lab) [address] [place], [address], 02/02/2023 12:15:59 02/03/20 23 02/02/2023 COMPR EHENS SOHEILA METAB OLIC PANEL total protein 5.7 g/dL 6.3-8. 2 low Not Available [facility] (Lab) [address] [place], [address], 02/02/2023 12:15:59 02/03/20 23 02/02/2023 COMPR EHENS SOHEILA METAB OLIC PANEL albumin 3.1 g/dL 3.0-4. 4 Not Available [facility] (Lab) [address] [place], [address], 02/02/2023 12:15:59 02/03/20 23 02/02/2023 COMPR EHENS SOHEILA METAB OLIC PANEL globulin 2.6 g/dL 2.6-4. 2 Not Available [facility] (Lab) [address] [place], [address], 02/02/2023 12:15:59 02/03/20 23 02/02/2023 COMPR EHENS SOHEILA METAB OLIC PANEL A/G ratio 1.2 ratio 1.0-2. 0 Not Available [facility] (Lab) [address] [place], [address], 02/02/2023 12:15:59 02/03/20 23 02/02/2023 URIC ACID SERUM uric acid 6.5 mg/dL 3.5-8. 5 Not Available [facility] (Lab) [address] [place], [address], 02/02/2023 12:16:01 02/03/20 23 02/02/2023 T4 FREE free T4 1.31 NG/dL 0.78-2 .19 Not Available [facility] (Lab) [address] [place], [address], 02/02/2023 12:30:35 02/03/20 23 02/02/2023 TSH thyroid-stim ulating hormone 9.260 uIU/m L 0.465- 4.680 high Not Available [facility] (Lab) [address] [place], [address], 02/02/2023 12:44:32 02/03/20 23 02/02/2023 T3 FREE free T3 2.8 pg/mL 2.77-5 .27 Not Available [facility] (Lab) [address] [place], [address], 02/02/2023 15:44:29 02/03/20 23 02/03/2023 CBC/C OMPLE TE BLD COUNT W/DIF F white blood cells 8.6 x10'3 /uL 4.2-10 .8 Not Available [facility] (Lab) [address] [place], [address], 02/03/2023 15:53:02 02/03/20 23 02/03/2023 CBC/C OMPLE TE BLD COUNT W/DIF F red blood cells 3.45 x10'6 /uL 4.10-5 .80 low Not Available [facility] (Lab) [address] [place], [address], 02/03/2023 15:53:02 02/03/20 23 02/03/2023 CBC/C OMPLE TE BLD COUNT W/DIF F hemoglobin 11.1 g/dL 13.2-1 7.0 low Not Available [facility] (Lab) [address] [place], [address], 02/03/2023 15:53:02 02/03/20 23 02/03/2023 CBC/C OMPLE TE BLD COUNT W/DIF F hematocrit 36.5 % 39.3-5 0.0 low Not Available [facility] (Lab) [address] [place], [address], 02/03/2023 15:53:02 02/03/20 23 02/03/2023 CBC/C OMPLE TE BLD COUNT W/DIF F mean red cell volume 105.8 fL 80.0-9 7.0 high Not Available [facility] (Lab) [address] [place], [address], 02/03/2023 15:53:02 02/03/20 23 02/03/2023 CBC/C OMPLE TE BLD COUNT W/DIF F mean red cell hemoglobin 32.2 pg 27.0-3 3.0 Not Available [facility] (Lab) [address] [place], [address], 02/03/2023 15:53:02 02/03/20 23 02/03/2023 CBC/C OMPLE TE BLD COUNT W/DIF F mean RBC HGB concentratio n 30.4 g/dL 31.0-3 6.0 low Not Available [facility] (Lab) [address] [place], [address], 02/03/2023 15:53:02 02/03/20 23 02/03/2023 CBC/C OMPLE TE BLD COUNT W/DIF F red cell distribution width 14.1 % 11.8-1 5.5 Not Available [facility] (Lab) [address] [place], [address], 02/03/2023 15:53:02 02/03/20 23 02/03/2023 CBC/C OMPLE TE BLD COUNT W/DIF F platelets 282 x10'3 /uL 150-40 0 Not Available [facility] (Lab) [address] [place], [address], 02/03/2023 15:53:02 02/03/20 23 02/03/2023 CBC/C OMPLE TE BLD COUNT W/DIF F mean platelet volume 11.1 fL 9.0-12 .4 Not Available [facility] (Lab) [address] [place], [address], 02/03/2023 15:53:02 02/03/20 23 02/03/2023 CBC/C OMPLE TE BLD COUNT W/DIF F neutrophils 66.0 % 39.0-7 2.0 Not Available [facility] (Lab) [address] [place], [address], 02/03/2023 15:53:02 02/03/20 23 02/03/2023 CBC/C OMPLE TE BLD COUNT W/DIF F lymphocytes 18.8 % 16.0-4 7.0 Not Available [facility] (Lab) [address] [place], [address], 02/03/2023 15:53:02 02/03/2002/03/2023 CBC/C OMPLE TE BLD COUNT W/DIF F monocytes 10.5 % 5.0-12 .0 Not Available [facility] (Lab) [address] [place], [address], 02/03/2023 15:53:02 02/03/20 23 02/03/2023 CBC/C OMPLE TE BLD COUNT W/DIF F eosinophils 3.0 % 1.0-7. 0 Not Available [facility] (Lab) [address] [place], [address], 02/03/2023 15:53:02 02/03/20 23 02/03/2023 CBC/C OMPLE TE BLD COUNT W/DIF F basophils 0.6 % 0.0-2. 0 Not Available [facility] [place] [facility] (Lab) [address] [place], [address], 02/03/2023 15:53:02 02/03/20 23 02/03/2023 CBC/C OMPLE TE BLD COUNT W/DIF F immature granulocytes 1.1 % 0.00-0 .50 high Not Available [facility] (Lab) [address] [place], [address], 02/03/2023 15:53:02 02/03/20 23 02/03/2023 CBC/C OMPLE TE BLD COUNT W/DIF F neutrophils, absolute count 5.64 x10'3 /uL 1.5-8. 0 Not Available [facility] (Lab) [address] [place], [address], 02/03/2023 15:53:02 02/03/20 23 02/03/2023 CBC/C OMPLE TE BLD COUNT W/DIF F lymphocytes, absolute count 1.61 x10'3 /uL 1.07-3 .43 Not Available [facility] (Lab) [address] [place], [address], 02/03/2023 15:53:02 02/03/20 23 02/03/2023 CBC/C OMPLE TE BLD COUNT W/DIF F monocytes, absolute count 0.90 x10'3 /uL 0.29-0 .99 Not Available [facility] (Lab) [address] [place], [address], 02/03/2023 15:53:02 02/03/20 23 02/03/2023 CBC/C OMPLE TE BLD COUNT W/DIF F eosinophils, absolute count 0.26 x10'3 /uL 0.02-0 .53 Not Available [facility] (Lab) [address] [place], [address], 02/03/2023 15:53:02 02/03/20 23 02/03/2023 CBC/C OMPLE TE BLD COUNT W/DIF F basophils, absolute count 0.05 x10'3 /uL 0.01-0 .08 Not Available [facility] (Lab) [address] [place], [address], 02/03/2023 15:53:02 02/03/20 23 02/03/2023 CBC/C OMPLE TE BLD COUNT W/DIF F immature granulocytes ,absolute 0.09 x10'3 /uL 0.00-0 .05 high Not Available [facility] (Lab) [address] [place], [address], 02/03/2023 15:53:02 02/03/20 23 02/03/2023 CBC/C OMPLE TE BLD COUNT W/DIF F nucleated red blood cells 0.0 % -0 Not Available [facility] (Lab) [address] [place], [address], 02/03/2023 15:53:02 02/03/20 23 02/03/2023 CBC/C OMPLE TE BLD COUNT W/DIF F NRBC# 0.00 x10'3 /uL Not Available [facility] (Lab) [address] [place], [address], 02/03/2023 15:53:02 02/03/20 23 02/03/2023 CBC/C OMPLE TE BLD COUNT W/DIF F macro OCCASI ONAL Not Available [facility] (Lab) [address] [place], [address], 02/03/2023 15:53:02 02/03/20 23 02/03/2023 CBC/C OMPLE TE BLD COUNT W/DIF F large platelets OCCASI ONAL Not Available [facility] (Lab) [address] [place], [address], 02/03/2023 15:53:02 02/03/20 23 02/02/2023 PSA SCREE N PSA medicare screen 0.49 NG/mL 0.00-4 .00 Not Available [facility] (Lab) [address] [place], [address], 02/02/2023 16:06:25 12/12/19 22 12/11/2021 colon oscop y scree noreen (PROC ) No observ ation record ed. [id number] Andie Tavarez MD [address] [facility] [address], [place], [address], 12/08/2022 23:32:24 04/14/20 22 04/14/2022 XR, chest , 2 view No observ ation record ed. [id number] [facility] Add On Lab Orders [address] [facility], [place], [address], 12/08/2022 23:32:24 06/15/20 22 06/15/2022 , [facility] ardio gram No observ ation record ed. [id number] [facility] [address], [place], [address], 12/08/2022 23:32:24 04/25/20 23 XR, elbow No observ ation record ed. [email or web address] [facility] [address] [facility], [place], [address], 04/25/2023 10:56:16 05/18/20 23 05/17/2023 XR, chest , 2 view No observ ation record ed. [email or web address] [facility] [address], [place], [address], 06/22/2023 21:12:19 06/03/20 23 06/02/2023 US, echoc ardio gram No observ ation record ed. [email or web address] [facility] [address], [place], [address], 06/22/2023 21:13:03 06/03/20 23 06/02/2023 US, kei x, carot id arter y No observ ation record ed. [email or web address] [facility] [address], [place], [address], 06/22/2023 21:14:04 Result Notes None recorded. Problems Name Problem SNOMED Code Status Onset Date Resolution Date Notes Provider Name and Address Organization Details Recorded Time Hyperkalem ia 19976730 Active 2021 Not Available [facility] 3 06:15:22 Serum creatinine outside reference range 283876445 Active 2020 Not Available [facility] 3 06:15:22 Hypothyroi dism 68571375 Active 2021 Not Available [facility] 3 06:15:22 Chronic kidney disease stage 3 973695347 Active 2021 Not Available [facility] 3 06:15:22 Atrial fibrillati on 85991586 Active 2020 Not Available [facility] 3 06:15:22 Hyperlipid emia 22844132 Active 2020 Not Available [facility] 3 06:15:22 Essential hypertensi on 26592012 Active 2020 Not Available [facility] 3 06:15:22 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 Procedures Surgical History Date Name Laterality Status Provider Name and Address Organization Details Recorded Time 2 Colonoscopy completed Not Available [facility] 12/09/19 23 23:29:04 Eye Surgery completed Not Available [facility] 12/08/2022 23:29:04 Imaging Results None recorded. Procedure Notes None recorded. Medical Equipment None Reported. Allergies Allergen ID Allergen Name Allergen Category Reaction Reaction Severity Criticality Documentation Date Start Date Code Code System Note Provider Name and Address Organization Details Recorded Time 59151 Product containin g penicilli n (product) medicatio n rash Not available Not available 12/08/2022 55186 8001 SNOMED Not Available [facility] 3 23:32:08 91284 Keflex medicatio n hives severe Not available 12/08/2022 63466 7 RxNorm Not Available [facility] 3 23:32:08 Medications Name Sig Start Date Stop Date Status Note LastModified by Organization Details LastModified Time atorvasta tin 40 mg tablet TAKE 1 TABLET BY MOUTH EVERY NIGHT active Not Available Not Available No t Available doxycycli ne hyclate 100 mg capsule Take 1 capsule twice a day by oral route for 10 days. active Not Available Not Available No t Available amiodaron e 200 mg tablet TAKE 1 TABLET BY MOUTH EVERY DAY active Not Available Not Available No t Available famotidin e 40 mg tablet Take 1 tablet every day by oral route for 7 days. active Not Available Not Available No t Available prednison e 5 mg tablet active Not Available Not Available Not Available clindamyc in HCl 150 mg capsule TAKE 1 CAPSULE BY MOUTH FOUR TIMES DAILY UNTIL ALL TAKEN 04/25 completed Not Available Not Available Not Available acetamino phen 300 mg-codein e 30 mg tablet TAKE 1 TABLET BY MOUTH EVERY 4 HOURS NEEDED FOR PAIN 06/22 completed Not Available Not Available Not Available amlodipin e 5 mg tablet TAKE 1 TABLET BY MOUTH DAILY 06/[address] Hayes Not Available Not Available Not Available tramadol 50 mg tablet TAKE 2 TABLETS BY MOUTH WITH TYLENOL THREE TIMES DAILY FOR PAIN CONTROL active Not Available Not Available No t Available methotrex ate sodium 2.5 mg tablet TAKE 5 TABLETS IN THE MORNING AND 5 TABLETS IN THE EVENING BY MOUTH ONCE WEEKLY active Not Available Not Available No t Available cephalexi n 500 mg capsule Take 1 capsule 3 times a day by oral route for 7 days. active Not Available Not Available No t Available metoprolo l tartrate 50 mg tablet TAKE 1 TABLET BY MOUTH TWICE DAILY active Not Available Not Available No t Available cephalexi n 500 mg tablet Take 1 tablet 3 times a day by oral route for 7 days. 05/15 completed Not Available Not Available Not Available folic acid 1 mg tablet active Not Available Not Available Not Available bisacodyl 5 mg tablet,de layed release TAKE 6 TABLET BY MOUTH ON 10/29 AT 8 AM 12/18 completed Not Available Not Available Not Available lisinopri l 5 mg tablet TAKE 2 TABLET BY MOUTH DAILY active Not Available Not Available No t Available furosemid e 20 mg tablet TAKE 1 TABLET BY MOUTH ON EVEN DAYS AND 2 TABLETS ON ODD DAYS 2022 active Not Available Not Available Not Avai lable methylpre dnisolone 4 mg tablets in a dose pack TAKE DIRECTED 04/25 completed Not Available Not Available Not Available colchicin e 0.6 mg tablet Take 1 tablet every day by oral route. 12/[address] Bauer stopped and changed medicati on Not Available Not Available Not Available calcitrio l 0.25 mcg capsule active Not Available Not Available Not Available ezetimibe 10 mg tablet TAKE 1 TABLET BY MOUTH EVERY DAY active Not Available Not Available No t Available peg 3350-elec trolytes 236 gram-22.7 4 gram-6.74 gram-5.86 gram solution TAKE 1/2 AT 5 PM ON AND 1/2 AT 5 AM ON DIRECTED 12/18 completed Not Available Not Available Not Available Eliquis 5 mg tablet TAKE 1 TABLET BY MOUTH TWICE DAILY active Not Available Not Available No t Available Vitals Date Recorded Body mass index (BMI) Body height Heart rate Body temperature Body weight Systolic blood pressure Diastolic blood pressure Provider Name and Address Organization Details Last Updated DateTime 2 24.6 kg/m2 172.72 cm 72 /min 98.1 [degF] 09666.9 6 g 124 mm[Hg] 78 mm[Hg] Not Available [facility] 3 23:29:50 Date Recorded Body height Body mass index (BMI) Body weight Body temperature Heart rate Systolic blood pressure Diastolic blood pressure Provider Name and Address Organization Details Last Updated DateTime 3 172.72 cm 23.9 kg/m2 00201 g 98.1 [degF] 62 /min 122 mm[Hg] 70 mm[Hg] Avis bermeo RN [facility] [employer] [facility] 3 09:46:26 Date Recorded Body height Body mass index (BMI) Body weight Provider Name and Address Organization Details Last Updated DateTime 04/25/2023 172.72 cm 24.3 kg/m2 20281.78 g Phoebe Tidwell [facility] [employer] [facility] 04/25/2023 10:52:11 Date Recorded Body height Body mass index (BMI) Body weight Body temperature Heart rate Systolic blood pressure Diastolic blood pressure Provider Name and Address Organization Details Last Updated DateTime 3 172.72 cm 25.4 kg/m2 61651.9 3 g 97.8 [degF] 52 /min 130 mm[Hg] 84 mm[Hg] Delphine Winchester Olga Lidia [facility] [employer] [facility] 3 13:54:06 Date Recorded Body mass index (BMI) Body height Heart rate Body temperature Body weight Systolic blood pressure Diastolic blood pressure Provider Name and Address Organization Details Last Updated DateTime 2 23.7 kg/m2 172.72 cm 62 /min 97.8 [degF] 87711.4 1 g 118 mm[Hg] 72 mm[Hg] Not Available [facility] 3 23:29:50 Social History Question Answer Notes LastModified by Organizat ion Details LastModified Time Tobacco Smoking Status Never Smoker Not Available [facility] 12/08/2022 23:28:39 Do You Have An Advance Directive? No MIGRATION.00042 [id number] Information not available 12/08/2022 Do You Wear A Helmet When Biking? No MIGRATION.26207 31338 Information not available 12/08/2022 Are You Blind Or Do You Have Difficulty Seeing? No MIGRATION.28536 09334 Information not available 12/08/2022 What Is Your Level Of Caffeine Consumption? Occasional Information not available 12/24/2022 In The 14 Days Before Symptom Onset, Have You Had Close Contact With A Laboratory-confi rmed COVID-19 While That Case Was Ill? No MIGRATION.18355 87800 Information not available 12/08/2022 In The 14 Days Before Symptom Onset, Have You Had Close Contact With A Person Who Is Under Investigation For COVID-19 While That Person Was Ill? No MIGRATION.88548 06453 Information not available 12/08/2022 Are You Deaf Or Do You Have Serious Difficulty Hearing? No MIGRATION.94978 11763 Information not available 12/08/2022 What Type Of Diet Are You Following? CARDIAC MIGRATION.12314 57719 Information not available 12/08/2022 Which Illicit Or Recreational Drugs Have You Used? Marijuana Very Rare Use MIGRATION.27956 35409 Information not available 12/08/2022 What Is The Highest Grade Or Level Of School You Have Completed Or The Highest Degree You Have Received? [id number] MIGRATION.61965 91520 Information not available 12/08/2022 Have There Been Any Changes To Your Family Or Social Situation? No MIGRATION.05036 97065 Information not available 12/08/2022 What Is The Fluoride Status Of Your Home? Unknown MIGRATION.02268 97434 Information not available 12/08/2022 Are There Any Guns Present In Your Home? Yes MIGRATION.77079 68065 Information not available 12/08/2022 Do You Use Insect Repellent Routinely? No MIGRATION.28142 74762 Information not available 12/08/2022 Where Do You Live? [facility] MIGRATION.12619 33645 Information not available 12/08/2022 Are You Following A Low Salt Diet? Yes MIGRATION.95247 88289 Information not available 12/08/2022 Do You Have A Medical Power Of Motors And Generators Inspector? No MIGRATION.72619 48062 Information not available 12/08/2022 What Was The Date Of Your Most Recent Tobacco Screening? 06/22/2023 [email or web address] Information not available 06/22/2023 Have You Ever Been Counseled For Unhealthy Alcohol Use? No MIGRATION.35186 22703 Information not available 12/08/2022 Do You Have Any Pets? Yes MIGRATION.16849 98850 Information not available 12/08/2022 What Is Your Relationship Status? MIGRATION.20529 20437 Information not available 12/08/2022 Do You Use Your Seat Belt Or Car Seat Routinely? Yes MIGRATION.81066 15385 Information not available 12/08/2022 Do You Have Smoke And Carbon Monoxide Detectors In Your Home? Yes MIGRATION.19740 94492 Information not available 12/08/2022 Are You Passively Exposed To Smoke? No MIGRATION.60124 02395 Information not available 12/08/2022 Are There Any Smokers In Your House? No MIGRATION.86807 89661 Information not available 12/08/2022 What Types Of Sporting Activities Do You Participate In? None [place] [employer] MIGRATION.74263 69835 Information not available 12/08/2022 Do You Use Sunscreen Routinely? No MIGRATION.41946 15345 Information not available 12/08/2022 Has Tobacco Cessation Counseling Been Provided? No Not Needed-nev er Smoked MIGRATION.26591 84301 Information not available 12/08/2022 Have You Recently Traveled Abroad? No MIGRATION.10081 59840 Information not available 12/08/2022 Have You Used IV Drugs? No MIGRATION.49834 80853 Information not available 12/08/2022 Do You Have Difficulty Walking Or Climbing Stairs? No MIGRATION.09620 22163 Information not available 12/08/2022 Do You Have Any Dietary Restrictions? Yes MIGRATION.92043 63806 Information not available 12/08/2022 Sex: Male Functional Status Question Answer Note LastModified by Organizat ion Details LastModified Time Do you use any illicit or recreational drugs? Yes MIGRATION.88409 34916 Information not available 12/08/2022 Do you or have you ever used any other forms of tobacco or nicotine? No MIGRATION.15692 60638 Information not available 12/08/2022 What is your level of alcohol consumption? Moderate a few beers a day MIGRATION.89691 90845 Information not available 12/08/2022 Are you currently employed? No retired Information not available 12/24/2022 Do you have transportation difficulties? No MIGRATION.12864 84338 Information not available 12/08/2022 Are you able to walk? YESWOREST MIGRATION.21644 19775 Information not available 12/08/2022 Do you have difficulty doing errands alone? No MIGRATION.00039 26686 Information not available 12/08/2022 Are you able to care for yourself? Yes MIGRATION.45985 72259 Information not available 12/08/2022 Do you have difficulty dressing or bathing? No MIGRATION.84933 74269 Information not available 12/08/2022 What is your exercise level? Occasional stays active at home MIGRATION.96502 92158 Information not available 12/08/2022 Mental Status Question Answer Note LastModified by Organizat ion Details LastModified Time Do you feel stressed (tense, restless, nervous, or anxious, or unable to sleep at night)? AC00750-3 MIGRATION.[id number] 26 Information not available 12/08/2022 Do you have difficulty concentrating, remembering or making decisions? No MIGRATION.93657936 26 Information not available 12/08/2022 Family History Relationship Description Onset Age of this Age Resolved Age Notes LastModified by Organization Details LastModified Time Mother Diverticulit is MIGRATION.757 [id number] Not available 12/08/2022 23:29:06 Mother Pneumonia MIGRATION.404 [id number] Not available 12/08/2022 23:29:06 Father Heart disease MIGRATION.007 [id number] Not available 12/08/2022 23:29:06 Medical History Condition Response NERVE DISEASE N BLINDNESS N RHEUMATIC FEVER N KIDNEY STONES N BLADDER PROBLEMS N MRSA N OTHER # 1 N POLIO N LUNG DISEASE/DISORDER N HISTORY OF DRUG ABUSE N RADIATION / CHEMOTHERAPY N COPD N Other # 2 N BLOOD DISEASES N EAR OR HEARING PROBLEMS N MUMPS N SHINGLES N DEPRESSION (INCLUDING POST ) N BOWEL PROBLEMS N STROKE/TIA N ULCERS N BENIGN PROSTATIC HYPERPLASIA N MEASLES N HYPOTENSION N MYOCARDIAL INFARCTION N OBESITY N GERD/NAUSEA N ANEURYSM N URINARY/BLADDER/KIDNEY PROBLEMS N CORONARY ARTERY DISEASE (CAD) Y ADDICTION CONCERNS N Impotence N ENDOMETRIOSIS N USE OF BLOOD THINNERS Y SKIN PROBLEMS N GASTROINTESTINAL DISORDER N PERIPHERAL VASCULAR DISEASE N MUSCLE,JOINT OR BONE PROBLEMS N GASTROINTESTINAL BLEEDING N BLOOD CLOTS N ASTHMA N CATARACTS N ERECTILE DYSFUNCTION N VARICOSITIES N GI PROBLEMS N Low Testosterone N INFERTILITY N AIDS/HIV N CHEMOTHERAPY / RADIATION N LIVER DISEASE N MALE HYPOGONADISM N HYPERTENSION Y Deficiency N TOURETTE'S N ANXIETY DISORDER N BLOOD TRANSFUSION N ANEMIA/BLOOD DISORDER N CHRONIC EAR INFECTIONS N BRONCHITIS N TUBERCULOSIS N GLAUCOMA N FOOT PROBLEM N DIVERTICULITIS N SLEEP APNEA N CHICKENPOX N INFECTIOUS DISEASE N PROSTATE N HEART ARRHYTHMIA N INSOMNIA N HIGH CHOLESTEROL / HYPERLIPIDEMIA Y EYE PROBLEMS N HYPERTHYROIDISM N EDEMA Y CHRONIC PAIN SYNDROME N HYPOTHYROIDISM N CAROTID BLOCKAGE N CONSTIPATION N BACK / NECK PROBLEMS N HAVE YOU BEEN HOSPITALIZED OR SEEN IN [facility] IN THE PAST YEAR ? N ATHEROSCLEROSIS N BREAST PROBLEMS N DIALYSIS N ECZEMA N OSTEOPOROSIS N ARTHRITIS Y APPENDICITIS N DIABETES, TYPE N BAD TEETH N ENT N HEARTBURN / REFLUX N AUTISM SPECTRUM DISORDER (ASD) N HEPATITIS / LIVER DISEASE N GOUT N SLEEP DISORDER N ALZHEIMER'S DISEASE N Brain Problems N DEMENTIA N HERPES N SEIZURES/EPILEPSY N HEADACHES/MIGRAINES N VASCULAR DISEASE N PACEMAKER N Blood Disorder N DIZZINESS N HEART DISEASE/HEART PROBLEMS N KIDNEY DISEASE Y MULTIPLE SCLEROSIS N CANCER: SPECIFY N CARDIAC ARRHYTHMIA N ATRIAL FIBRILLATION Y Gall Stones N PULMONARY EMBOLISM N AUTOIMMUNE DISEASE N Past Encounters Encounter ID Performer Location Encounter Start Date Encounter Closed Date Diagnosis/Indication Diagnosis SNOMED-CT Code Diagnosis ICD10 Code Diagnosis Note [id number] Raven Bauer MD [facility] Internal Med [facility] [address] [address] 1 05/11/2021 00:00:00 05/31/2021 17:44:53 [id number] Raven Bauer MD [facility] Internal Med [facility] [address] [place] [id number] 1 05/15/2021 00:00:00 05/15/2021 21:04:04 [id number] Raven Bauer MD [facility] [address] [place] [id number] 1 06/17/2021 00:00:00 06/17/2021 10:26:38 [id number] Raven Bauer MD [facility] [address] [place] [id number] 1 08/12/2021 00:00:00 08/14/2021 20:51:12 [id number] Raven Bauer MD [facility] Internal Med [facility] [address] [place], [place] [address]., [address] [address] 1 12/18/2021 00:00:00 01/31/2022 18:13:16 [id number] Raven Bauer MD [facility] Internal Med [facility] [address] [place] [id number] 1 06/25/2022 00:00:00 06/26/2022 13:22:31 [id number] Raven Bauer MD [facility] Internal Med [facility] [address] [address] 1 12/24/2022 09:32:43 12/24/2022 10:55:17 Essential hypertension 22170482 I10 Gout 85993399 M10.9 Screening for malignant neoplasm of prostate 315156585 Z12.5 Chronic ki dney disease stage 3 682042365 N18.30 Hyperlipidemia 43442319 E78.5 [id number] Tony Vegas MD [facility] [address] 04/25/2023 10:22:00 04/25/2023 11:30:00 Pain of left elbow joint 1651918734 3738668 M25.522 Left radia l nerve palsy 2399184320 6671813 G56.32 Lesion of ulnar nerve 36 7056639 G56.22 [id number] Raven Bauer MD [facility] Internal Med [facility] [address] [address] 1 06/22/2023 13:45:52 06/22/2023 14:33:27 Gout 42989346 M10.9 Essential hypertension 96087452 I10 Chronic ki dney disease stage 3 753166924 N18.30 Health Concerns Section Related Observation LastModified by Organization Detai ls LastModified Time None Recorded Concern Status LastModified by Organization Details LastModified Time None Recorded Advance Directives Directive N: Payers Encounter Date Sequence Insurance Name Policy Number Policy Nunez Covered Member ID Nunez Member ID Guarantor Name 12/24/2022 1 [facility] (MEDICARE REPLACEMENT/A DVANTAGE - HMO) [id number] Pan Joshua [id number] Pan Joshua 04/25/2023 1 [facility] (MEDICARE REPLACEMENT/A DVANTAGE - HMO) [id number] Pan Joshua [id number] Pan Tres 06/22/2023 1 [facility] (MEDICARE REPLACEMENT/A DVANTAGE - HMO) [id number] Pan A Tres [id number] Pan Joshua Notes Date Note Type Note Provider Name and Address Organization Details Recorded Time 3 text/html Big toe got red not that his ankle got involved not schedule a bit better severe pain 5 days no traumaCKD 3 does not know when he had blood work lastThyroid abnormality probably amiodarone relatedHyperlipidemia does try to watch dietAFib no palpitation Raven Bauer MD [address], [place], [address], [employer] 12/25/2022 15:30:20 3 text/html Big toe got red not that his ankle got involved not schedule a bit better severe pain 5 days no traumaCKD 3 does not know when he had blood work lastThyroid abnormality probably amiodarone relatedHyperlipidemia does try to watch dietAFib no palpitation Raven Bauer MD [address], [place], [address], [employer] 07/05/2023 10:32:45
== END 2025-03-11 11:25 | disposition home or self-care (01) ==
PROVIDERS: PCP Internal Medicine; Visit Provider Internal Medicine Cardiovascular Disease
DX: I10 Essential (primary) hypertension (principal); R91.8 Other nonspecific abnormal finding of lung field
CPT/HCPCS: 71046

== ENCOUNTER 2025-05-29 10:13 | Outpatient (CLI) | payer MEDICARE, SELFPAY ==
--- NOTE | ~2025-05-29 | XR_ITS ---
EXAM/ PROCEDURE: XR forearm RT 2V - 05/29/2025 10:24 CDT HISTORY: 70 years old Male with Cat bite; PAIN, REDNESS, SWELLING BRUISING ON RT FOREARM COMPARISON: None available TECHNIQUE: Three view(s) FINDINGS/ IMPRESSION: There are no fractures or dislocations.Joint spaces are within normal limits. Reviewed, dictated and finalized at location A.
--- OUTSIDE RECORDS SUMMARY | 2025-05-29 10:39 | XMS_ITS | Encounter Summary ---
Author Organization [facility] Address [address] [place] [address] Phone Care Team Providers Care Senior Analyst Programmer Name Role Phone Ricki Bauer MD Primary Care Provider [phone] Reason for Visit * Reason Onset Date Comments Med Refill 04/10/2024 Encounter Details Date Type Department Care Team (Late st Contact Info) Description 04/10/2024 Refill [facility] [address] [facility] 1 [place] [address] Maria Eugenia Evans RN Social History Tobacco Use Types Packs/Day Years Used Date Smoking Tobacco: Never Smokeless Tobacco: Never Sex and Gender Information Value Date Recorded Sex Assigned at Not on file Legal Sex Male 11:50 AM MST Gender Identity Not on file Sexual Orientation Not on file documented as of this encounter Plan of Treatment Upcoming Encounters Date Type Department Care Team (Late st Contact Info) Description 08/20/2025 2:20 PM VERIFYING SPECIALIST Office Visit [facility] [address] [facility] [address] [place] [address] aMxx Juarez MD [address] [place] [address] 1 [place] [address] documented as of this encounter Visit Diagnoses Not on filedocumented in this encounter Care Teams Senior Analyst Programmer Relationship Specialty Start Date End Date Ricki Bauer MD [address] [facility] 15 [place] [address] PCP - General 09/22/21 documented as of this encounter
--- OUTSIDE RECORDS SUMMARY | 2025-05-29 10:39 | XMS_ITS | Clinical Summary ---
Author Organization [facility] Address [address] [place] [address] Phone Care Team Providers Care Signals Analyst Name Role Phone Ricki Bauer MD Primary Care Provider [phone] Allergies Active Allergy Reactions Criticality Noted Date Comments Cephalexin Hives 09/21/2021 Methotrexate 01/09/2025 Medications amiodarone (PACERONE) 200 MG tablet Take 200 mg by mouth 1 (one) time each day if needed Active apixaban (ELIQUIS) 5 MG tablet Take 5 mg by mouth 2 (two) times a day Active furosemide (LASIX) 20 MG tablet Take by mouth 2 (two) times a day Active metoprolol tartrate (LOPRESSOR) 50 MG tablet Take 50 mg by mouth in the morning and 50 mg in the evening. Active folic acid (FOLVITE) 1 MG tablet Take 1 mg by mouth 1 (one) time each day Active atorvastatin (LIPITOR) 40 MG tablet Take 40 mg by mouth 1 (one) time each day Active ferrous sulfate 325 (65 Fe) MG tablet Take 325 mg by mouth 1 (one) time each day with breakfast Active calcitriol (ROCALTROL) 0.25 MCG capsule TAKE 1 CAPSULE(0.25 MCG) BY MOUTH 1 TIME EACH DAY 30 capsule 2 4 Active lisinopril (PRINIVIL) 40 MG tablet Take 1 tablet (40 mg total) by mouth 1 (one) time each day 30 tablet 11 5 11/20/19 26 Active Active Problems Problem Noted Date Diagnosed Date Anemia in chronic kidney disease 11/20/2024 Secondary hyperparathyroidism of renal origin Chronic kidney disease, Stage IV (severe) Hypertensive renal disease Resolved Problems Problem Noted Date Diagnosed Date Resolved Date Complex renal cyst 11/22/2023 5 Anemia 03/22/2023 02/20/2024 Atrophy of kidney 02/16/2022 07/08/2023 Renal artery stenosis 02/16/20222022 Atrial fibrillation 09/22/2021 03/17/20 Other and unspecified hyperlipidemia 03/17/2023 Family History Medical History Relation Comments Heart disease Father Diverticulitis Mother Pneumonia Mother Relation Status Comments Father Mother Social History Tobacco Use Types Packs/Day Years Used Date Smoking Tobacco: Never Smokeless Tobacco: Never Tobacco Cessation:Counseling Given: Not Answered Sex and Gender Information Value Date Recorded Sex Assigned at Not on file Legal Sex Male 11:50 AM MST Gender Identity Not on file Sexual Orientation Not on file Last Filed Vital Signs Vital Sign Reading Time Taken Comments Blood Pressure 158/91 11/20/2024 12:23 PM SALES DEVELOPMENT EXECUTIVE Pulse 46 11/20/2024 12:23 PM SALES DEVELOPMENT EXECUTIVE Temperature 36.8 C (98.3 F) 09/22/2021 1:35 PM SALES DEVELOPMENT EXECUTIVE Respiratory Rate - - Oxygen Saturation 96% 07/19/2023 11:30 AM CDT Inhaled Oxygen Concentration - - Weight 75.8 kg (167 lb) 11/20/2024 12:23 PM SALES DEVELOPMENT EXECUTIVE Height 182.9 cm (6') 11/20/2024 12:23 PM SALES DEVELOPMENT EXECUTIVE Body Mass Index 22.65 11/20/2024 12:23 PM SALES DEVELOPMENT EXECUTIVE Plan of Treatment Upcoming Encounters Date Type Department Care Team (Late st Contact Info) Description 08/20/2025 2:20 PM SALES DEVELOPMENT EXECUTIVE Office Visit [facility] [address] [facility] 206 [place], [place] [phone] Maxx Juarez MD [address] [place] [address] Health Maintenance Due Date Last Done Comments Pneumococcal PPSV23/PCV13 65 + Years / High and Highest Risk (1 of 5 - PCV) 1974 Influenza Vaccine (#1) 2025 Insurance [facility] [place] [address] [employer] MEDICARE PM INTERFACED INSURANCE Care Teams Signals Analyst Relationship Specialty Start Date End Date Ricki Bauer MD [address] [facility] 15 [place] [address] PCP - General 09/22/21
== END 2025-05-29 10:14 | disposition home or self-care (01) ==
PROVIDERS: PCP Internal Medicine; Visit Provider Internal Medicine
DX: M79.631 Pain in right forearm (principal); W55.01XA Bitten by cat, initial encounter
CPT/HCPCS: 73090